=== PATIENT | female | born 1980 | race Caucasian/White ===

== ENCOUNTER → 2019-07-03 16:13 | Outpatient (BNVA) | payer BC, SELFPAY | PROVIDERS: Family Provider Family Medicine; PCP Family Medicine; Visit Provider Family Medicine | DX: E78.5 Hyperlipidemia, unspecified (principal); J01.90 Acute sinusitis, unspecified; R23.2 Flushing | CPT/HCPCS: 80053; 84443 ==

== ENCOUNTER → 2019-11-19 11:07 | Outpatient (BNVA) | payer BC, SELFPAY | PROVIDERS: Family Provider Family Medicine; PCP Family Medicine; Visit Provider Nurse Practitioner Family | DX: R50.9 Fever, unspecified (principal); J01.40 Acute pansinusitis, unspecified; Z20.828 Contact with and (suspected) exposure to other viral communicable diseases; Z11.59 Encounter for screening for other viral diseases; Z68.27 Body mass index [BMI] 27.0-27.9, adult; F17.210 Nicotine dependence, cigarettes, uncomplicated | CPT/HCPCS: 87071; 87400; 87880 ==

== ENCOUNTER 2019-12-03 13:13 | Emergency (ER) | payer BC, SELFPAY ==
[2019-12-03 13:21] VITALS: BP 126/88; PULSE 100; RESP 16; TEMP 36.8; O2SAT 98; BMI 26.6
--- NOTE | 2019-12-03 15:22 | PC.NURSE ---
Rounded on pt, pt updated on wait for room. Pt requesting Tylenol for pain. Physician notified.
--- NOTE | 2019-12-03 15:41 | W.ED.GIBLEED ---
Documented by User: Tom Jin DO 12/04/19 23:07 HPI - GI Bleed General: Chief complaint: GI Bleed Stated complaint: bloody stool Time Seen by Provider: 12/03/19 15:40 History of Present Illness: HPI Narrative: 39 yo female presents emergency room after having a bloody bowel movements morning she had another one after she arrived here. Had discolored the water but not completely turning it solid red. She denies any lightheadedness or dizziness she actually had this several times in the past states she had a pelvic hematoma that she had drained a look at the old records look like she had a perirectal abscess that drained through the rectum into the rectal vault rather than actually draining fistulas into the skin. She has had a couple resections other and is recurred. She is not had any fever sweats or chills she denies any other symptoms no dysuria urgency or frequency no respiratory symptoms. No nausea vomiting or diarrhea. She not been exposed anyone is known to be covered positive recently. Associated symptoms: Denies abdominal pain, chills, fever(s), malaise, nausea, rash or vomiting Review of Systems Const: Denies: fever(s), chills, body aches, change in appetite, fatigue or malaise ENMT: Denies: throat pain, ear or mastoid pain, nasal discharge or nasal congestion Card: Denies: chest pain, edema, dyspnea on exertion or orthopnea Resp: Denies: dyspnea, productive cough or non-productive cough GI: Denies: abdominal pain, nausea, vomiting, hematemesis, coffee ground emesis, diarrhea, constipation, bloating, hematochezia or melena : Denies: flank pain, difficulty voiding, dysuria, urinary frequency or urinary urgency Skin/Breast: Denies: rash or pruritus PFSH ED PFSH: Medical History Chronic bilateral low back pain without sciatica Chronic migraine without aura, intractable, with status migrainosus Hyperlipidemia Nicotine dependence, cigarettes, with unspecified nicotine-induced disorders Perirectal abscess Seizure disorder Surgical History H/O hemorrhoidectomy History of pelvic surgery S/P cholecystectomy S/P tubal ligation Family History Other COPD (chronic obstructive pulmonary disease) Cancer Diabetes Hypertension Lung disease Stroke Social History Smoking and tobacco status: current every day smoker Alcohol intake: never Female Reproductive History: Date of last menstrual period: 12/03/19 Physical Exam Const: COMMON NORMALS: no acute distress GENERAL APPEARANCE: cooperative and comfortable ORIENTATION/CONSCIOUSNESS: Yes awake, Yes oriented to person, Yes oriented to place and Yes oriented to time HENMT: COMMON NORMALS: normocephalic, atraumatic, hearing grossly normal bilaterally, external ears normal, EAC's normal, TM's normal bilaterally, Normal nasal mucous membranes and turbinates present, moist oral mucous membranes and oropharynx normal HEAD & SCALP: normocephalic and atraumatic NOSE: Normal nasal mucous membranes and turbinates present EXTERNAL EAR: Yes external ears normal EXTERNAL AUDITORY CANAL: EAC's normal TYMPANIC MEMBRANE: TM's normal bilaterally Eye: COMMON NORMALS: Equal, round and reactive pupils present, EOMs intact bilaterally, conjunctivae normal and no scleral icterus CONJUNCTIVA: Yes conjunctivae normal PUPIL: Yes Equal, round and reactive pupils present Neck/C-Spine: COMMON NORMALS: full ROM, no lymphadenopathy, supple and no JVD Lymph: LYMPHATIC: no lymphadenopathy noted and no lymphedema noted Resp: COMMON NORMALS: normal respiratory effort, No retractions, No use of accessory muscles and clear to auscultation bilaterally AUSCULTATION: clear to auscultation bilaterally Cardio: COMMON NORMALS: no JVD, regular rate, regular rhythm and No murmurs present (Cardio) RATE: regular rate RHYTHM: regular rhythm GI: COMMON NORMALS: Soft to palpation and No hepatosplenomegaly present AUSCULTATION: Yes normoactive bowel sounds PALPATION: Yes Soft to palpation, No Tenderness to palpation present (GI), No Guarding due to palpation present (GI) and Yes No hepatosplenomegaly present Extremity: COMMON NORMALS: normal to inspection, capillary refill normal, no clubbing, cyanosis or edema, no calf tenderness and no pedal edema Neuro: SENSORIUM/ORIENTATION: Yes oriented to person, Yes oriented to place and Yes oriented to time Skin: COMMON NORMALS: no rashes or lesions noted GENERAL SKIN EXAM: no rashes or lesions noted Course Vital Signs: Vital signs: Vital Signs Temperature 98.2 F 12/03/19 13:21 Pulse Rate 76 12/03/19 18:47 Respiratory Rate 16 12/03/19 18:47 Blood Pressure 134/91 12/03/19 18:47 Pulse Oximetry 99 12/03/19 18:47 MDM - GI Bleed MDM Narrative: Medical decision making narrative: CT pelvis pending care turned over to Dr. High at change of shift see his note for final diagnosis and disposition Lab Data: Labs: Lab Results 12/03/19 12/03/19 12/03/19 Range/Units 15:43 15:43 15:43 WBC 8.3 (4.0-10.0) 10^3/ uL RBC 4.91 (4.1-5.3) 10^6/u L Hgb 14.5 (11.5-15.3) g/dL Hct 45.0 (37.0-47.0) % MCV 91.6 (81-99) fL MCH 29.5 (28.0-34.0) pg MCHC 32.2 (30.0-36.0) g/dL RDW 13.7 (12.1-15.1) % Plt Count 263 (130-400) 10^3/c mm MPV 10.8 H (7.4-10.4) fL Neut % (Auto) 54.8 % Lymph % (Auto) 35.6 % [place] % (Auto) 7.8 % Eos % (Auto) 1.0 % Baso % (Auto) 0.7 % Neut # (Auto) 4.52 (1.8-7.7) 10^3/u L Lymph # (Auto) 2.9 (0.8-4.8) 10^3/u L [place] # (Auto) 0.6 (0.2-0.9) 10^3/u L Eos # (Auto) 0.1 (0.0-0.8) 10^3/u L Baso # (Auto) 0.1 (0.0-0.1) 10^3/u L Nucleated RBC % (a uto) 0 % Nucleated RBCs # 0.0 /100WBC PT 12.40 (10.5-13.3) SECO NDS INR 0.90 (0.8-1.2) APTT 25.5 (23.9-36.7) SECO NDS Sodium 139 (136-145) mmol/L Potassium 4.0 (3.5-5.1) mmol/L Chloride 107 (98-107) mmol/L Carbon Dioxide 23 (22-29) mmol/L Anion Gap 13.0 (5-19) BUN 8 (6-20) mg/dL Creatinine 0.7 (0.5-0.9) mg/dL GFR Calculation 93.6 (90-130) mL/min Glucose 90 (65-115) mg/dL Calculated Osmolal ity 283 L (285-295) mOsm/k g Calcium 9.6 (8.5-10.5) mg/dL Total Bilirubin 0.3 (0.15-1.2) mg/dL AST 14 (0-32) U/L ALT 8 (0-33) U/L Alkaline Phosphata se 58 (35-105) IU/L Total Protein 7.2 (6.6-8.7) g/dL Albumin 4.6 (3.5-5.2) g/dL Globulin 2.6 (1.3-4.6) g/dL Lipase 32 (13-60) U/L HCG, Qual (Negative) 12/03/19 Range/Units 15:43 WBC (4.0-10.0) 10^3/ uL RBC (4.1-5.3) 10^6/u L Hgb (11.5-15.3) g/dL Hct (37.0-47.0) % MCV (81-99) fL MCH (28.0-34.0) pg MCHC (30.0-36.0) g/dL RDW (12.1-15.1) % Plt Count (130-400) 10^3/c mm MPV (7.4-10.4) fL Neut % (Auto) % Lymph % (Auto) % [place] % (Auto) % Eos % (Auto) % Baso % (Auto) % Neut # (Auto) (1.8-7.7) 10^3/u L Lymph # (Auto) (0.8-4.8) 10^3/u L [place] # (Auto) (0.2-0.9) 10^3/u L Eos # (Auto) (0.0-0.8) 10^3/u L Baso # (Auto) (0.0-0.1) 10^3/u L Nucleated RBC % (a uto) % Nucleated RBCs # /100WBC PT (10.5-13.3) SECO NDS INR (0.8-1.2) APTT (23.9-36.7) SECO NDS Sodium (136-145) mmol/L Potassium (3.5-5.1) mmol/L Chloride (98-107) mmol/L Carbon Dioxide (22-29) mmol/L Anion Gap (5-19) BUN (6-20) mg/dL Creatinine (0.5-0.9) mg/dL GFR Calculation (90-130) mL/min Glucose (65-115) mg/dL Calculated Osmolal ity (285-295) mOsm/k g Calcium (8.5-10.5) mg/dL Total Bilirubin (0.15-1.2) mg/dL AST (0-32) U/L ALT (0-33) U/L Alkaline Phosphata se (35-105) IU/L Total Protein (6.6-8.7) g/dL Albumin (3.5-5.2) g/dL Globulin (1.3-4.6) g/dL Lipase (13-60) U/L HCG, Qual Negative (Negative) Discharge Plan Discharge Patient Disposition: Home, Self-Care Clinical Impression: Proctitis Condition: Stable Prescriptions: New Flagyl 500 mg tablet 500 mg PO TID 10 Days Qty: 30 RF: 0 Cipro 500 mg tablet 500 mg PO BID Qty: 20 RF: 0 promethazine 25 mg tablet 25 mg PO Q4H PRN (Reason: nausea and vomiting) Qty: 20 RF: 0 No Action albuterol sulfate [ProAir HFA] 90 mcg/actuation HFA aerosol inhaler 2 inh INHALATION Q4H PRN (Reason: shortness of breath or wheezing) Qty: 6.7 RF: 0 atorvastatin 10 mg tablet 10 mg PO DAILY Qty: 30 RF: 0 Discharge Orders: Discharge Order (Routine); Ordered 12/03/19 Ordered By: rTinh Price Referrals: Anabela Dorantes DO [Primary Care Provider] - 1-3 days Discharge Diet: Advance as tolerated and Clear Liquid Discharge Activity: Increase activity as tolerated Patient Instructions: Proctitis (ED) Activity Restrictions/Additional Instructions: Please return to the ER immediately for any of the signs or symptoms listed on your discharge instruction sheets, worsening/changing of your symptoms, you are not getting better as quickly as expected, or for ANY other cause or concerns. Take your antibiotics as I have prescribed. Use the nausea medicine as needed. Follow a clear liquid diet and advance it back to normal as your pain goes away. Return to the ER for fever, increased pain, increased rectal bleeding, or for any other cause for concern. Stand Alone Forms: Work/School Release Discharge Date/Time: 12/03/19 18:51 Sign Out Sign Out Data: Patient Sign Out occurred on 12/03/19 at 18:11. Patient's care was discussed, and care was transferred from to Trinh Price. Coding Level of Care Code ED Healthcare Social Worker for Chg Fwd Documented by User: Trinh Price 12/03/19 18:42 HPI - GI Bleed General: Chief complaint: GI Bleed Stated complaint: bloody stool Time Seen by Provider: 12/03/19 15:40 PFSH ED PFSH: Medical History Chronic bilateral low back pain without sciatica Chronic migraine without aura, intractable, with status migrainosus Hyperlipidemia Nicotine dependence, cigarettes, with unspecified nicotine-induced disorders Perirectal abscess Seizure disorder Surgical History H/O hemorrhoidectomy History of pelvic surgery S/P cholecystectomy S/P tubal ligation Family History Other COPD (chronic obstructive pulmonary disease) Cancer Diabetes Hypertension Lung disease Stroke Social History Smoking and tobacco status: current every day smoker Alcohol intake: never Course Vital Signs: Vital signs: Vital Signs Temperature 98.2 F 12/03/19 13:21 Pulse Rate 76 12/03/19 18:47 Respiratory Rate 16 12/03/19 18:47 Blood Pressure 134/91 12/03/19 18:47 Pulse Oximetry 99 12/03/19 18:47 MDM - GI Bleed MDM Narrative: Medical decision making narrative: 183 -patient CARE turned over to me at change of shift from Dr. Jin. Please see his portion of this note for that history, physical exam and medical decision-making notes. On my exam the patient's abdomen is nontender and there is no sign of peritonitis. She is not had any further rectal bleeding since arrival here. CT scan shows proctitis but no sign of perirectal abscess. Patient is relieved to hear this and would like to go home. I will place her on Cipro and Flagyl and she agrees to follow-up with her doctor for recheck. I did discuss with her at length the signs and symptoms for which to return here to the ER and she is well versed in the signs and symptoms of perirectal abscess and agrees to do so if necessary. Lab Data: Attestation: I reviewed the patient's lab results. Labs: Lab Results 12/03/19 12/03/19 12/03/19 Range/Units 15:43 15:43 15:43 WBC 8.3 (4.0-10.0) 10^3/ uL RBC 4.91 (4.1-5.3) 10^6/u L Hgb 14.5 (11.5-15.3) g/dL Hct 45.0 (37.0-47.0) % MCV 91.6 (81-99) fL MCH 29.5 (28.0-34.0) pg MCHC 32.2 (30.0-36.0) g/dL RDW 13.7 (12.1-15.1) % Plt Count 263 (130-400) 10^3/c mm MPV 10.8 H (7.4-10.4) fL Neut % (Auto) 54.8 % Lymph % (Auto) 35.6 % [place] % (Auto) 7.8 % Eos % (Auto) 1.0 % Baso % (Auto) 0.7 % Neut # (Auto) 4.52 (1.8-7.7) 10^3/u L Lymph # (Auto) 2.9 (0.8-4.8) 10^3/u L [place] # (Auto) 0.6 (0.2-0.9) 10^3/u L Eos # (Auto) 0.1 (0.0-0.8) 10^3/u L Baso # (Auto) 0.1 (0.0-0.1) 10^3/u L Nucleated RBC % (a uto) 0 % Nucleated RBCs # 0.0 /100WBC PT 12.40 (10.5-13.3) SECO NDS INR 0.90 (0.8-1.2) APTT 25.5 (23.9-36.7) SECO NDS Sodium 139 (136-145) mmol/L Potassium 4.0 (3.5-5.1) mmol/L Chloride 107 (98-107) mmol/L Carbon Dioxide 23 (22-29) mmol/L Anion Gap 13.0 (5-19) BUN 8 (6-20) mg/dL Creatinine 0.7 (0.5-0.9) mg/dL GFR Calculation 93.6 (90-130) mL/min Glucose 90 (65-115) mg/dL Calculated Osmolal ity 283 L (285-295) mOsm/k g Calcium 9.6 (8.5-10.5) mg/dL Total Bilirubin 0.3 (0.15-1.2) mg/dL AST 14 (0-32) U/L ALT 8 (0-33) U/L Alkaline Phosphata se 58 (35-105) IU/L Total Protein 7.2 (6.6-8.7) g/dL Albumin 4.6 (3.5-5.2) g/dL Globulin 2.6 (1.3-4.6) g/dL Lipase 32 (13-60) U/L HCG, Qual (Negative) 12/03/19 Range/Units 15:43 WBC (4.0-10.0) 10^3/ uL RBC (4.1-5.3) 10^6/u L Hgb (11.5-15.3) g/dL Hct (37.0-47.0) % MCV (81-99) fL MCH (28.0-34.0) pg MCHC (30.0-36.0) g/dL RDW (12.1-15.1) % Plt Count (130-400) 10^3/c mm MPV (7.4-10.4) fL Neut % (Auto) % Lymph % (Auto) % [place] % (Auto) % Eos % (Auto) % Baso % (Auto) % Neut # (Auto) (1.8-7.7) 10^3/u L Lymph # (Auto) (0.8-4.8) 10^3/u L [place] # (Auto) (0.2-0.9) 10^3/u L Eos # (Auto) (0.0-0.8) 10^3/u L Baso # (Auto) (0.0-0.1) 10^3/u L Nucleated RBC % (a uto) % Nucleated RBCs # /100WBC PT (10.5-13.3) SECO NDS INR (0.8-1.2) APTT (23.9-36.7) SECO NDS Sodium (136-145) mmol/L Potassium (3.5-5.1) mmol/L Chloride (98-107) mmol/L Carbon Dioxide (22-29) mmol/L Anion Gap (5-19) BUN (6-20) mg/dL Creatinine (0.5-0.9) mg/dL GFR Calculation (90-130) mL/min Glucose (65-115) mg/dL Calculated Osmolal ity (285-295) mOsm/k g Calcium (8.5-10.5) mg/dL Total Bilirubin (0.15-1.2) mg/dL AST (0-32) U/L ALT (0-33) U/L Alkaline Phosphata se (35-105) IU/L Total Protein (6.6-8.7) g/dL Albumin (3.5-5.2) g/dL Globulin (1.3-4.6) g/dL Lipase (13-60) U/L HCG, Qual Negative (Negative) Imaging Data^: CT Abd/Pel: Radiologist's impression: [address] [place] [address] CT Scan Report Signed Patient: Ranjeet Whatley Unit #: [id number] : 1980 Age/Sex: 39 / F ADM Date: 12/03/19 Loc: ER Room/Bed: Attending Dr: Ordering Provider/Ordering MD: Tom Jin DO Date of Service: 12/03/19 Procedure(s): CT pelvis w con* [id number] Accession Number(s): [id number] Report Number: [id number] PROCEDURE INFORMATION: Exam: CT Pelvis With Contrast Exam date and time: 12/03/2019 5:32 PM Age: 39 years old Clinical indication: Other: Rectal bleeding; Other: Rectal pain; Prior surgery; Surgery date: 6+ months; Surgery type: Rectal abscesses; Additional info: Rectal bleeding, HX of rectal abscess TECHNIQUE: Imaging protocol: Computed tomography images of the pelvis with intravenous contrast. Radiation optimization: All CT scans at this facility use at least one of these dose optimization techniques: automated exposure control; mA and/or kV adjustment per patient size (includes targeted exams where dose is matched to clinical indication); or iterative reconstruction. Contrast material: OMNI 300; Contrast volume: 95 ml; Contrast route: INTRAVENOUS (IV); COMPARISON: CT Abdomen/Pelvis Renal [id number] 05/02/2019 7:58 AM RADIATION DOSE METRICS: Total DLP (mGy-cm): 309.59 FINDINGS: Stomach and bowel: Borderline bowel wall thickening in the rectum consistent with borderline proctitis. Appendix: Normal appendix. Intraperitoneal space: Unremarkable. No free air. No significant fluid collection. Vasculature: One or more calcified pelvic phleboliths. Lymph nodes: Unremarkable. No enlarged lymph nodes. Bladder: Normal. No mass. Reproductive: New tampon in place which is predominantly air density. Bones/joints: Unremarkable. No acute fracture. No dislocation. Soft tissues: Unremarkable. Other findings: No obvious perirectal abscess at this time. CT/CT pelvis w con* [id number] IMPRESSION: 1. Borderline bowel wall thickening in the rectum consistent with borderline proctitis. 2. No obvious perirectal abscess at this time. Radiation Dose CTDIVOL = (mGy): DLP = 309.59 (mGy-cm) Dictated By: Rodri Champagne MD Signed By: Rodri Champagne MD Signed Date/Time: 12/03/191758 DD/ 57 Discharge Plan Discharge Patient Disposition: Home, Self-Care Clinical Impression: Proctitis Condition: Stable Prescriptions: New Flagyl 500 mg tablet 500 mg PO TID 10 Days Qty: 30 RF: 0 Cipro 500 mg tablet 500 mg PO BID Qty: 20 RF: 0 promethazine 25 mg tablet 25 mg PO Q4H PRN (Reason: nausea and vomiting) Qty: 20 RF: 0 No Action albuterol sulfate [ProAir HFA] 90 mcg/actuation HFA aerosol inhaler 2 inh INHALATION Q4H PRN (Reason: shortness of breath or wheezing) Qty: 6.7 RF: 0 atorvastatin 10 mg tablet 10 mg PO DAILY Qty: 30 RF: 0 Discharge Orders: Discharge Order (Routine); Ordered 12/03/19 Ordered By: Trinh Price Referrals: Anabela Dorantes DO [Primary Care Provider] - 1-3 days Discharge Diet: Advance as tolerated and Clear Liquid Discharge Activity: Increase activity as tolerated Patient Instructions: Proctitis (ED) Activity Restrictions/Additional Instructions: Please return to the ER immediately for any of the signs or symptoms listed on your discharge instruction sheets, worsening/changing of your symptoms, you are not getting better as quickly as expected, or for ANY other cause or concerns. Take your antibiotics as I have prescribed. Use the nausea medicine as needed. Follow a clear liquid diet and advance it back to normal as your pain goes away. Return to the ER for fever, increased pain, increased rectal bleeding, or for any other cause for concern. Stand Alone Forms: Work/School Release Discharge Date/Time: 12/03/19 18:51 Sign Out Sign Out Data: Patient Sign Out occurred on 12/03/19 at 18:11. Patient's care was discussed, and care was transferred from to Trinh Price. Coding Level of Care Code ED Healthcare Social Worker for Tish Smallwood
[2019-12-03 15:51] VITALS: BP 119/82; BP 120/78; BP 120/82; PULSE 74; PULSE 83; PULSE 92
[2019-12-03 15:53] LABS: Basophils # 0.1 10^3/uL (0.0-0.1); Basophils % 0.7 %; Eosinophils # 0.1 10^3/uL (0.0-0.8); Hemoglobin 14.5 g/dL (11.5-15.3); Lymphocytes # 2.9 10^3/uL (0.8-4.8); Lymphocytes % 35.6 %; Mean Corpuscular HGB Conc 32.2 g/dL (30.0-36.0); Mean Corpuscular Hemoglobin 29.5 pg (28.0-34.0); Mean Corpuscular Volume 91.6 fL (81-99); Mean Platelet Volume 10.8 fL (7.4-10.4); Monocytes # 0.6 10^3/uL (0.2-0.9); Monocytes % 7.8 %; Neutrophils # 4.52 10^3/uL (1.8-7.7); Neutrophils % 54.8 %; Nucleated Red Blood Cells % 0 %; Platelet Count 263 10^3/cmm (130-400); Red Blood Count 4.91 10^6/uL (4.1-5.3); Red Cell Distribution Width 13.7 % (12.1-15.1); White Blood Count 8.3 10^3/uL (4.0-10.0)
--- NOTE | 2019-12-03 16:11 | CTR_ITS ---
PROCEDURE INFORMATION: Exam: CT Pelvis With Contrast Exam date and time: 12/03/2019 5:32 PM Age: 39 years old Clinical indication: Other: Rectal bleeding; Other: Rectal pain; Prior surgery; Surgery date: 6+ months; Surgery type: Rectal abscesses; Additional info: Rectal bleeding, HX of rectal abscess TECHNIQUE: Imaging protocol: Computed tomography images of the pelvis with intravenous contrast. Radiation optimization: All CT scans at this facility use at least one of these dose optimization techniques: automated exposure control; mA and/or kV adjustment per patient size (includes targeted exams where dose is matched to clinical indication); or iterative reconstruction. Contrast material: OMNI 300; Contrast volume: 95 ml; Contrast route: INTRAVENOUS (IV); COMPARISON: CT Abdomen/Pelvis Renal [id number] 05/02/2019 7:58 AM RADIATION DOSE METRICS: Total DLP (mGy-cm): 309.59 FINDINGS: Stomach and bowel: Borderline bowel wall thickening in the rectum consistent with borderline proctitis. Appendix: Normal appendix. Intraperitoneal space: Unremarkable. No free air. No significant fluid collection. Vasculature: One or more calcified pelvic phleboliths. Lymph nodes: Unremarkable. No enlarged lymph nodes. Bladder: Normal. No mass. Reproductive: New tampon in place which is predominantly air density. Bones/joints: Unremarkable. No acute fracture. No dislocation. Soft tissues: Unremarkable. Other findings: No obvious perirectal abscess at this time. CT/CT pelvis w con* [id number] IMPRESSION: 1. Borderline bowel wall thickening in the rectum consistent with borderline proctitis. 2. No obvious perirectal abscess at this time. Radiation Dose CTDIVOL = (mGy): DLP = 309.59 (mGy-cm)
[2019-12-03 16:17] LABS: Partial Thromboplastin Time 25.5 SECONDS (23.9-36.7)
[2019-12-03 16:19] LABS: Alanine Aminotransferase 8 U/L (0-33); Albumin Level 4.6 g/dL (3.5-5.2); Alkaline Phosphatase 58 IU/L (35-105); Aspartate Amino Transferase 14 U/L (0-32); Blood Urea Nitrogen 8 mg/dL (6-20); Calcium 9.6 mg/dL (8.5-10.5); Carbon Dioxide 23 mmol/L (22-29); Chloride 107 mmol/L (98-107); Globulin 2.6 g/dL (1.3-4.6); Glomerular Filtration Rate 93.6 mL/min (90-130); Glucose 90 mg/dL (65-115); Lipase 32 U/L (13-60); Osmolality Calculated 283 mOsm/kg (285-295); Sodium 139 mmol/L (136-145); Total Bilirubin 0.3 mg/dL (0.15-1.2); Total Protein 7.2 g/dL (6.6-8.7)
[2019-12-03] MEDS: acetaminophen 500 mg Tablet 1000 MG PO (16:26)
[2019-12-03 16:44] VITALS: BP 117/69; PULSE 64; RESP 16; O2SAT 99
--- NOTE | 2019-12-03 16:44 | PC.NURSE ---
Patient reports that she got up and used the restroom. Patient states she is now losing large clots now.
[2019-12-03 17:34] VITALS: BP 93/59; PULSE 77; RESP 16; O2SAT 100
[2019-12-03] MEDS: iohexol 300 mg/mL 100 mL Btl IV (17:48)
[2019-12-03 18:32] LABS: HCG, Serum Qual Negative (Negative)
[2019-12-03] MEDS: ciprofloxacin 500 mg Tablet PO (18:46)
[2019-12-03] MEDS: metroNIDAZOLE 500 MG Tablet PO (18:46)
[2019-12-03 18:47] VITALS: BP 134/91; PULSE 76; RESP 16; O2SAT 99
== END 2019-12-03 18:51 | disposition home or self-care (01) ==
PROVIDERS: Emergency Medicine; Family Medicine; Emergency Provider Emergency Medicine; PCP Family Medicine
DX: K62.89 Other specified diseases of anus and rectum (principal); E78.5 Hyperlipidemia, unspecified; F17.210 Nicotine dependence, cigarettes, uncomplicated
CPT/HCPCS: 12345; 36415; 72193; 80053; 83690; 84703; 85025; 85610; 85730; 99283; 99284; Q9967

== ENCOUNTER → 2020-01-16 11:40 | Outpatient (BNVA) | payer BC, SELFPAY | PROVIDERS: PCP Family Medicine; Visit Provider Nurse Practitioner Family | DX: R09.81 Nasal congestion (principal); R50.9 Fever, unspecified; Z20.828 Contact with and (suspected) exposure to other viral communicable diseases | CPT/HCPCS: 87635 ==

== ENCOUNTER → 2020-03-04 14:26 | Outpatient (BNVA) | payer BC, SELFPAY | PROVIDERS: PCP Family Medicine; Visit Provider Nurse Practitioner Family | DX: J06.9 Acute upper respiratory infection, unspecified (principal); R50.9 Fever, unspecified | CPT/HCPCS: 87635 ==

== ENCOUNTER → 2020-04-06 14:47 | Outpatient (BNVA) | payer BC, SELFPAY | PROVIDERS: PCP Family Medicine; Visit Provider Nurse Practitioner Family | DX: Z20.828 Contact with and (suspected) exposure to other viral communicable diseases (principal); J06.9 Acute upper respiratory infection, unspecified | CPT/HCPCS: 87635 ==

== ENCOUNTER → 2020-05-25 14:19 | Outpatient (BNVA) | payer BC, SELFPAY | PROVIDERS: PCP Family Medicine; Visit Provider Nurse Practitioner Family | DX: Z20.828 Contact with and (suspected) exposure to other viral communicable diseases (principal); J06.9 Acute upper respiratory infection, unspecified | CPT/HCPCS: 87635 ==

== ENCOUNTER 2020-06-03 13:57 | Outpatient (CLI) | payer BC, SELFPAY ==
--- NOTE | 2020-06-03 14:04 | USCV_ITS ---
Ranjeet Whatley Age: 39 Gender: F : 1980 Exam Date: 06/03/2020 14:05 Ordering Phys: Anabela Dorantes DO Technologist: [place] [facility] [place]: Bilateral leg pain RIGHT LEFT Brachial 109.00 mmHg Brachial 114.00 mmHg Pressure (mmHg) Waveform Pressure (mmHg) Waveform 150.00 DRY KILN WORKER 146.00 131.00 DPA 138.00 1.32 Ankle/Brachial Index 1.28 112.00 Pre-Exercise Toe Pressure 136.00 0.98 Pre-Exercise Toe/Brachial Index 1.19 FINDINGS Normal resting ABIs bilaterally Normal resting TBI's bilaterally Normal segmental pressures CONCLUSIONS No evidence of any significant arterial obstruction, based on the above findings. Dr Trev Olivares MD [facility] (Electronically Signed) Final Date: 03 June 2020 19:45 S
== END 2020-06-03 13:58 | disposition home or self-care (01) ==
LOC: RAD 14:00
PROVIDERS: PCP Family Medicine; Visit Provider Family Medicine
DX: M79.604 Pain in right leg (principal); M79.605 Pain in left leg
CPT/HCPCS: 80053; 84443; 85025; 93922

== ENCOUNTER 2020-06-30 08:25 | Outpatient (CLI) | payer BC, SELFPAY ==
[2020-06-30 08:54] VITALS: BMI 26.6
--- NOTE | 2020-06-30 09:12 | ECG_ITS ---
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 Interpretive Statements NAME OF STUDY: EXERCISE SESTAMIBI STRESS TEST INDICATION: [DYSPNEA ON EXERTION] EXERCISE DATA: The patient was exercised by Scott protocol. Baseline heart rate was 83 beats per minute. Baseline blood pressure was 122/80 millimeters of mercury. Target heart rate was 154 beats per minute. Maximum heart rate achieved was 162, which was 89% of maximum predicted heart rate. Maximum blood pressure was 138/73 millimeters of mercury. Total exercise time was 6 minutes 48 seconds. Maximum METs achieved was 7, maximum VO2 was 24.5. The reason for ending the test was completion of protocol. The patient complained of shortness of breath during the stress test, which then resolved at the end of the test. ELECTROCARDIOGRAM: BASELINE: Showed sinus rhythm, normal axis, no significant ST-T changes at the baseline noted. [] EXERCISE: At the peak exercise level, No significant ST-T changes suggestive of ischemia noted. RECOVERY: During the recovery period, heart rate dropped appropriately. No significant ST-T changes in the recovery suggestive of ischemia noted. [] CONCLUSION: 1. Exercise capacity fair. 2. Heart rate response was appropriate. 3. Blood pressure response was appropriate. 4. Symptoms not suggestive of ischemia. 5. Electrocardiogram portion of the stress test was not suggestive of ischemia. 6. Nuclear scan will be documented separately. Electronically Signed On 07-04-2020 14:11:44 PROVISIONING SPECIALIST by Bradley Hernandez M.D. [id number]
--- NOTE | 2020-06-30 09:13 | NMCV_ITS ---
NM lam perf SPECT r/s* [id number] Ranjeet Whatley Age: 39 Gender: F : 1980 Exam Date: 06/30/2020 09:54 Ordering Phys: Anabela Dorantes DO Technologist: SHANNON Celeste Exam Location: [facility] Indications: Dyspnea on exertion STRESS TEST Please see separate stress test report in [facility] for full findings IMAGE PROTOCOL Rest/Stress 1 Exercise Day Radiopharmaceutical Dose (mCi) Administration Site Administered by Rest: Tc-99m 10.9 IV SHANNON Armenta Sestamibi Stress:Tc-99m 32.9 IV SHANNON Celeste Sestamitodd Rest: 30-Jun-2020 60 Discovery 630 Stress: 30-Jun-2020 30 Discovery 630 Radiopharmaceutical was injected at 85 % maximum heart rate. Images obtained in supine and prone position. SPECT RESULTS Technical Quality: Excellent Raw Data Analysis: Normal Image Corrections: No attenuation or motion correction applied Summed Stress Score: 1 Summed Rest Score: 2 Summed Difference Score: 0 PERFUSION FINDINGS SPECT images demonstrate homogeneous tracer distribution throughout the myocardium. FUNCTIONAL RESULTS (calculated via Gated SPECT) Stress Image LV EF (%): 64 Stress EDV (mL):70 TID: 0.83 Stress ESV (mL):25 FUNCTIONAL FINDINGS: LV systolic function is normal with EF of 64%. IMPRESSIONS 1. Normal myocardial perfusion imaging with no evidence of ischemia. 2. LV systolic function is normal with EF of 64%. Bradley Hernandez MD (Electronically Signed) Final Date: 30 June 2020 13:56 S
[2020-06-30 11:08] VITALS: BP 113/72; PULSE 82
== END 2020-06-30 08:26 | disposition home or self-care (01) ==
LOC: CDL 08:26
PROVIDERS: PCP Family Medicine; Visit Provider Family Medicine
DX: R06.00 Dyspnea, unspecified (principal)
CPT/HCPCS: 78452; 93017; A9500

== ENCOUNTER 2020-10-23 19:26 | Emergency (ER) | payer BC, SELFPAY ==
[2020-10-23 19:34] VITALS: BP 111/72; PULSE 122; RESP 16; TEMP 36.8; O2SAT 99; BMI 25.7
--- NOTE | 2020-10-23 19:55 | CTR_ITS ---
PROCEDURE INFORMATION: Exam: CT Abdomen And Pelvis With Contrast Exam date and time: 10/23/2020 8:25 PM Age: 40 years old Clinical indication: Other: Rectal; Prior surgery; Surgery date: 6+ months; Surgery type: Abcess x 3, gb, tubal; Patient HX: C/O pain/pressure x 4 days w HX of abcess; Additional info: Rectal pain, HX proctitis and perirectal abscess TECHNIQUE: Imaging protocol: Computed tomography of the abdomen and pelvis with contrast. Total images: 221 Radiation optimization: All CT scans at this facility use at least one of these dose optimization techniques: automated exposure control; mA and/or kV adjustment per patient size (includes targeted exams where dose is matched to clinical indication); or iterative reconstruction. Contrast material: OMNI 300; Contrast volume: 95 ml; Contrast route: INTRAVENOUS (IV); COMPARISON: 1. CT pelvis w con* [id number] 12/03/2019 5:[address] Abdomen/Pelvis Renal [id number] 05/02/2019 7:58:07 AM RADIATION DOSE METRICS: Total DLP (mGy-cm): 1113.71 FINDINGS: Lungs: Limited assessment of the lung bases fails to reveal evidence for active cardiopulmonary process. Liver: No visible hepatic mass or cystic structure. Gallbladder and bile ducts: Status post cholecystectomy. Pancreas: Pancreas is unremarkable. No visible pancreatic ductal ectasia. Spleen: Spleen unremarkable. Adrenal glands: Adrenal glands unremarkable. Kidneys and ureters: No hydronephrosis or perinephric fluid. Very small simple cortical cysts right kidney. No follow-up recommended. No visible nephrolithiasis. No visible ureterolithiasis. Stomach and bowel: Examination reveals considerable mucosal inflammation of the rectum with surrounding perirectal fat inflammatory response consistent with acute proctitis. Less significant mucosal thickening and inflammation of the rectosigmoid and sigmoid colon raising concern for regional colitis. Less significant mucosal prominence of the descending colon. No associated descending colonic pericolonic fat inflammatory response. Consideration should be given to ulcerative colitis. Nonobstructive bowel pattern. No visible adynamic or reactive ileus. Appendix: The appendix is visualized and appears noninflamed. Intraperitoneal space: No visible pneumoperitoneum or intraperitoneal ascites. Vasculature: Portal vein patent. The abdominal aorta is nonaneurysmal. Lymph nodes: Few marginally prominent retroperitoneal periaortic/pericaval lymph nodes most likely reactive. Urinary bladder: Urinary bladder unremarkable. Reproductive: Unremarkable as visualized. Bones/joints: No visible active or acute osseous pathology. Soft tissues: No visible perirectal abscess/perineal abscess. CT/CT abdomen pelvis w con* [id number] IMPRESSION: 1. Examination reveals considerable mucosal inflammation of the rectum with surrounding perirectal fat inflammatory response consistent with acute proctitis. 2. Less significant mucosal thickening and inflammation of the rectosigmoid and sigmoid colon raising concern for regional colitis. 3. Consideration should be given to ulcerative colitis. COMMENTS: Consistent with the [employer]'s Incidental Findings Committee white paper (J Am Renée Radiol 2018): Any incidental renal lesion less than 1 cm or classified as too small to characterize, or any incidental cystic renal lesion characterized as simple-appearing, is likely benign. No follow-up imaging is recommended for these lesions per consensus recommendations based on imaging criteria. Radiation Dose CTDIVOL = (mGy): DLP = 1113.71 (mGy-cm)
--- NOTE | 2020-10-23 20:00 | ED_ITS ---
HPI - General Adult General: Chief complaint: General Medical Stated complaint: Pressure in Rear Area Time Seen by Provider: 10/23/20 19:41 History of Present Illness: HPI narrative: 40-year-old patient with a history of proctitis and perirectal abscess. She has seen gastroenterology at [facility] in [facility], and is scheduled for a colonoscopy on Sunday. However, over the past couple of days she is begun to feel pressure again in her rectum. The pressure worsened today. She denies any blood in her stool, although she states that her stool has been like jelly no fever no vomiting. No change in her urine. She is concerned because of her previous history. Onset (ago): day(s) Location: pelvis (Perirectal/rectal) Radiation: non-radiation Severity: moderate Quality: aching and other (Pressure) Pain Consistency: constant Relieving factors: none Exacerbating factors: none Associated symptoms: Reports nausea; Deny chest pain, dyspnea, fevers/chills or vomiting Review of Systems Const: Denies: fever(s) Card: Denies: chest pain Resp: Denies: dyspnea GI: Reports: nausea; Denies: vomiting or hematochezia : Denies: flank pain, difficulty voiding, dysuria or hematuria PFS ED PFSH: Medical History (Updated 10/23/20 @ 21:33 by Papito De Jesus DO) Chronic bilateral low back pain without sciatica Chronic migraine without aura, intractable, with status migrainosus Hyperlipidemia Nicotine dependence, cigarettes, with unspecified nicotine-induced disorders Perirectal abscess Proctitis Seizure disorder Surgical History H/O hemorrhoidectomy History of pelvic surgery S/P cholecystectomy S/P tubal ligation Status post colonoscopy (~2018) Family History Mother Anesthesia complication Other COPD (chronic obstructive pulmonary disease) Cancer Diabetes Hypertension Lung disease Stroke Denies family history of Bleeding disorder Social History Smoking and tobacco status: current every day smoker cigarettes Packs smoked per day: 1 Alcohol intake: never Household members: significant other Marital status: Single Current occupational status: employed History of recent travel: No Female Reproductive History: Date of last menstrual period: 12/03/19 Physical Exam Const: COMMON NORMALS: no acute distress, patient oriented x3 and alert Eye: COMMON NORMALS: Equal, round and reactive pupils present and EOMs intact bilaterally PUPIL: Yes Equal, round and reactive pupils present Resp: COMMON NORMALS: normal respiratory effort, No use of accessory muscles and clear to auscultation bilaterally AUSCULTATION: clear to auscultation bilaterally Cardio: COMMON NORMALS: regular rate, regular rhythm and No murmurs present (Cardio) RATE: regular rate RHYTHM: regular rhythm GI: COMMON NORMALS: Normal to inspection, nondistended, normoactive bowel sounds present, Soft to palpation and no masses PALPATION: Yes Soft to palpation and Yes Tenderness to palpation present (GI) (Mild) Details: LLQ and RLQ RECTAL EXAM: no lesion(s) noted, no fissure noted, No Fistula present (GI), no mass(es) noted and tenderness Neuro: COMMON NORMALS: patient oriented x3 SENSORIUM/ORIENTATION: Yes alert Skin: COMMON NORMALS: no rashes or lesions noted GENERAL SKIN EXAM: no rashes or lesions noted Course Vital Signs: Vital signs: Vital Signs Temperature 98.2 F 10/23/20 19:34 Pulse Rate 97 10/23/20 22:18 Respiratory Rate 18 10/23/20 22:18 Blood Pressure 115/73 10/23/20 22:18 Pulse Oximetry 100 10/23/20 22:18 MDM - General Adult MDM Narrative: Medical decision making narrative: White blood cell count 12.6. Sed rate minimally elevated, but CRP is 24. Other labs are benign. CT scan shows proctitis and descending colitis without abscess suggestive of inflammatory bowel disease, especially given recurrence. Patient counseled on her diagnosis and treatment including steroids and antibiotics for inflammatory bowel disease flare following up with her GI physician on Sunday morning by phone for any further instructions, and returning for any worsening symptoms. Lab Data: Labs: Lab Results 10/23/20 10/23/20 10/23/20 Range/Units 20:05 20:05 20:05 WBC 12.6 H (4.0-10.0) 10^3/ uL RBC 4.87 (4.1-5.3) 10^6/u L Hgb 14.6 (11.5-15.3) g/dL Hct 43.9 (37.0-47.0) % MCV 90.1 (81-99) fL MCH 30.0 (28.0-34.0) pg MCHC 33.3 (30.0-36.0) g/dL RDW 13.3 (12.1-15.1) % Plt Count 270 (130-400) 10^3/c mm MPV 10.4 (7.4-10.4) fL Neut % (Auto) 76.2 % Lymph % (Auto) 15.9 % [place] % (Auto) 6.4 % Eos % (Auto) 0.7 % Baso % (Auto) 0.3 % Neut # (Auto) 9.56 H (1.8-7.7) 10^3/u L Lymph # (Auto) 2.0 (0.8-4.8) 10^3/u L [place] # (Auto) 0.8 (0.2-0.9) 10^3/u L Eos # (Auto) 0.1 (0.0-0.8) 10^3/u L Baso # (Auto) 0.0 (0.0-0.1) 10^3/u L Nucleated RBC % (a uto) 0 % Nucleated RBCs # 0.0 /100WBC ESR 17 H (0-15) mm/hr Sodium 140 (136-145) mmol/L Potassium 3.5 (3.5-5.1) mmol/L Chloride 103 (98-107) mmol/L Carbon Dioxide 26 (22-29) mmol/L Anion Gap 14.5 (5-19) BUN 8 (6-20) mg/dL Creatinine 0.7 (0.5-0.9) mg/dL GFR Calculation 93.2 (90-130) mL/min Glucose 117 H (65-115) mg/dL Calculated Osmolal ity 289 (285-295) mOsm/k g Lactate (0.5-2.2) mmol/L Calcium 9.0 (8.5-10.5) mg/dL Total Bilirubin 0.4 (0.15-1.2) mg/dL AST 10 (0-32) U/L ALT 6 (0-33) U/L Alkaline Phosphata se 63 (35-105) IU/L C-Reactive Protein 24.0 H (0.0-4.9) mg/L Total Protein 7.2 (6.6-8.7) g/dL Albumin 4.2 (3.5-5.2) g/dL Globulin 3.0 (1.3-4.6) g/dL Lipase 14 (13-60) U/L HCG, Qual (Negative) Urine Color (Yellow) Urine Appearance (CLEAR) Urine pH (5-7) Ur Specific Gravit y (1.005-1.030) Urine Protein (Negative) Urine Glucose (UA) (Normal) Urine Ketones (Negative) Urine Blood (Negative) Urine Nitrate (Negative) Urine Bilirubin (Negative) Urine Urobilinogen (Negative) mg/dL Ur Leukocyte Emma ase (Negative) 10/23/20 10/23/20 10/23/20 Range/Units 20:05 20:15 20:18 WBC (4.0-10.0) 10^3/ uL RBC (4.1-5.3) 10^6/u L Hgb (11.5-15.3) g/dL Hct (37.0-47.0) % MCV (81-99) fL MCH (28.0-34.0) pg MCHC (30.0-36.0) g/dL RDW (12.1-15.1) % Plt Count (130-400) 10^3/c mm MPV (7.4-10.4) fL Neut % (Auto) % Lymph % (Auto) % [place] % (Auto) % Eos % (Auto) % Baso % (Auto) % Neut # (Auto) (1.8-7.7) 10^3/u L Lymph # (Auto) (0.8-4.8) 10^3/u L [place] # (Auto) (0.2-0.9) 10^3/u L Eos # (Auto) (0.0-0.8) 10^3/u L Baso # (Auto) (0.0-0.1) 10^3/u L Nucleated RBC % (a uto) % Nucleated RBCs # /100WBC ESR (0-15) mm/hr Sodium (136-145) mmol/L Potassium (3.5-5.1) mmol/L Chloride (98-107) mmol/L Carbon Dioxide (22-29) mmol/L Anion Gap (5-19) BUN (6-20) mg/dL Creatinine (0.5-0.9) mg/dL GFR Calculation (90-130) mL/min Glucose (65-115) mg/dL Calculated Osmolal ity (285-295) mOsm/k g Lactate 0.8 (0.5-2.2) mmol/L Calcium (8.5-10.5) mg/dL Total Bilirubin (0.15-1.2) mg/dL AST (0-32) U/L ALT (0-33) U/L Alkaline Phosphata se (35-105) IU/L C-Reactive Protein (0.0-4.9) mg/L Total Protein (6.6-8.7) g/dL Albumin (3.5-5.2) g/dL Globulin (1.3-4.6) g/dL Lipase (13-60) U/L HCG, Qual Negative (Negative) Urine Color Yellow (Yellow) Urine Appearance Clear (CLEAR) Urine pH 7 (5-7) Ur Specific Gravit y 1.005 (1.005-1.030) Urine Protein Neg (Negative) Urine Glucose (UA) Norm (Normal) Urine Ketones Negative (Negative) Urine Blood Neg (Negative) Urine Nitrate Negative (Negative) Urine Bilirubin Neg (Negative) Urine Urobilinogen Norm (Negative) mg/dL Ur Leukocyte Emma ase Negative (Negative) Discharge Plan Discharge Patient Disposition: Home Clinical Impression: Proctitis, Colitis Condition: Stable Prescriptions: New hydrocodone-acetaminophen 5-325 mg tablet 1 tab PO Q8H PRN (Reason: pain) Qty: 12 RF: 0 prednisone 10 mg tablet See Rx Instructions .ROUTE .COMPLEX Qty: 21 RF: 0 Flagyl 500 mg tablet 500 mg PO TID Qty: 21 RF: 0 No Action albuterol sulfate [ProAir HFA] 90 mcg/actuation HFA aerosol inhaler 2 inh INHALATION Q4H PRN (Reason: shortness of breath or wheezing) Qty: 6.7 RF: 0 azithromycin [Zithromax Z-Adán] 250 mg tablet See Rx Instructions PO .COMPLEX Qty: 6 RF: 0 ciprofloxacin-dexamethasone [Ciprodex] 0.3-0.1 % drops,suspension 4 drp otic (ear) BID 7 Days Qty: 7.5 RF: 0 Discharge Orders: Discharge ED (Routine); Ordered 10/23/20 Ordered By: Papito De Jesus Referrals: Anabela Dorantes DO [Primary Care Provider] - Discharge Diet: Advance as tolerated Discharge Activity: Increase activity as tolerated Patient Instructions: Proctitis (ED), Ulcerative Colitis (ED), Opioid Safety Activity Restrictions/Additional Instructions: Return for fever greater than 100, vomiting liquids or medications, worsening pain despite treatment, blood in the stool, any other concerning symptoms. Call your inspector metal fabricating Sunday morning for any further recommendations, and to let them know you were seen here. Coding Level of Care Code ED Knife Finisher for Chg Fwd Exam Detailed
[2020-10-23 20:11] LABS: Basophils % 0.3 %; Eosinophils # 0.1 10^3/uL (0.0-0.8); Eosinophils % 0.7 %; Hematocrit 43.9 % (37.0-47.0); Hemoglobin 14.6 g/dL (11.5-15.3); Lymphocytes % 15.9 %; Mean Corpuscular HGB Conc 33.3 g/dL (30.0-36.0); Mean Corpuscular Volume 90.1 fL (81-99); Mean Platelet Volume 10.4 fL (7.4-10.4); Monocytes # 0.8 10^3/uL (0.2-0.9); Monocytes % 6.4 %; Neutrophils # 9.56 10^3/uL (1.8-7.7); Neutrophils % 76.2 %; Nucleated Red Blood Cells % 0 %; Platelet Count 270 10^3/cmm (130-400); Red Blood Count 4.87 10^6/uL (4.1-5.3); Red Cell Distribution Width 13.3 % (12.1-15.1); White Blood Count 12.6 10^3/uL (4.0-10.0)
[2020-10-23 20:22] LABS: HCG, Serum Qual Negative (Negative)
[2020-10-23 20:25] LABS: Add Urine Microscopic? NO; Charge for UA Resulting for Rev
[2020-10-23 20:29] LABS: Bilirubin Urine Neg (Negative); Blood Urine Neg (Negative); Glucose Urine UA Norm (Normal); Ketones Urine Negative (Negative); Leukocyte Esterase Urine Negative (Negative); Nitrate Urine Negative (Negative); Protein Urine Neg (Negative); Specific Gravity, Urine 1.005 (1.005-1.030); Urine Appearance Clear (CLEAR); Urine Color Yellow (Yellow); Urobilinogen Urine Norm (Negative); pH Urine 7 (5-7)
[2020-10-23 20:31] LABS: Alanine Aminotransferase 6 U/L (0-33); Albumin Level 4.2 g/dL (3.5-5.2); Alkaline Phosphatase 63 IU/L (35-105); Anion Gap 14.5 (5-19); Aspartate Amino Transferase 10 U/L (0-32); Blood Urea Nitrogen 8 mg/dL (6-20); Carbon Dioxide 26 mmol/L (22-29); Chloride 103 mmol/L (98-107); Glomerular Filtration Rate 93.2 mL/min (90-130); Glucose 117 mg/dL (65-115); Lipase 14 U/L (13-60); Osmolality Calculated 289 mOsm/kg (285-295); Potassium 3.5 mmol/L (3.5-5.1); Sodium 140 mmol/L (136-145); Total Bilirubin 0.4 mg/dL (0.15-1.2); Total Protein 7.2 g/dL (6.6-8.7)
[2020-10-23] MEDS: iohexol 300 mg/mL 100 mL Btl IV (20:32)
[2020-10-23 20:37] LABS: Lactate (Lactic Acid level) 0.8 mmol/L (0.5-2.2)
[2020-10-23] MEDS: ondansetron 2 mg/ML SDV 2 mL 4 MG IVP (20:48)
[2020-10-23] MEDS: ketorolac 30 mg/mL INJ IVP (20:48)
[2020-10-23 20:50] LABS: Erythrocyte Sedimentation Rate 17 mm/hr (0-15)
[2020-10-23] MEDS: metroNIDAZOLE 500 MG Tablet PO (21:30)
[2020-10-23] MEDS: HYDROmorphone 1 mg/mL INJ 1 mL IVP (21:34)
[2020-10-23 22:18] VITALS: BP 115/73; PULSE 97; RESP 18; O2SAT 100
== END 2020-10-23 22:18 | disposition home or self-care (01) ==
PROVIDERS: Emergency Provider Emergency Medicine; PCP Family Medicine
DX: K62.89 Other specified diseases of anus and rectum (principal); K52.9 Noninfective gastroenteritis and colitis, unspecified; E78.5 Hyperlipidemia, unspecified; F17.210 Nicotine dependence, cigarettes, uncomplicated
CPT/HCPCS: 74177; 80053; 81003; 83605; 83690; 84703; 85025; 85651; 86140; 96374; 96375; 99284; J1170; J1885; J2405; J2930; Q9967

== ENCOUNTER 2022-02-02 08:30 | Emergency (ER) | payer BC, SELFPAY ==
[2022-02-02 08:35] VITALS: BP 141/88; PULSE 82; RESP 18; TEMP 36.4; O2SAT 97
--- NOTE | 2022-02-02 08:44 | US_ITS ---
WS: [id number] TRANSVAGINAL PELVIC ULTRASOUND HISTORY: L side pelvic pain COMPARISON: 08/08/2017 Uterus: 8.4 cm x 5.8 cm x 4.6 cm. Normal size anteverted uterus. No fibroid or mass. Endometrium: 0.7 cm. Moderate amount of fluid along the endometrial canal. Simple fluid with normal m yometrial junction. Right ovary: 3.6 cm x 2.3 cm x 1.9 cm. Normal size ovary. Dominant follicle measures 1.9 x 1.4 x 2.0 cm. No mass identified. Left ovary: 2.5 cm x 1.8 cm x 2.0 cm. Normal size and vascularity, no cystic or solid masses. Small amount of simple free fluid in the cul-de-sac. US/US transvaginal [id number] IMPRESSION: 1. Small amount of free fluid in the cul-de-sac. 2. Mild fluid distention of the endometrium. Endometrium size is normal. No ma ss identified obstructing the endocervical canal.
[2022-02-02 09:16] LABS: Add Urine Microscopic? NO; Charge for UA Resulting for Rev
[2022-02-02 09:17] LABS: Bilirubin Urine Neg (Negative); Blood Urine Neg (Negative); Glucose Urine UA Norm (Normal); Ketones Urine Negative (Negative); Leukocyte Esterase Urine Negative (Negative); Nitrate Urine Negative (Negative); Protein Urine Neg (Negative); Urine Appearance Clear (CLEAR); Urine Color Yellow (Yellow); Urobilinogen Urine Norm (Negative); pH Urine 6 (5-7)
[2022-02-02 09:38] VITALS: BP 144/90; O2SAT 98
[2022-02-02 09:49] LABS: Basophils % 0.5 %; Eosinophils # 0.2 10^3/uL (0.0-0.8); Eosinophils % 2.1 %; Hematocrit 44.1 % (37.0-47.0); Hemoglobin 14.7 g/dL (11.5-15.3); Lymphocytes # 2.2 10^3/uL (0.8-4.8); Lymphocytes % 27.1 %; Mean Corpuscular HGB Conc 33.3 g/dL (30.0-36.0); Mean Corpuscular Hemoglobin 30.1 pg (28.0-34.0); Mean Corpuscular Volume 90.2 fl (81-99); Mean Platelet Volume 10.7 fL (7.4-10.4); Monocytes # 0.6 10^3/uL (0.2-0.9); Monocytes % 7.5 %; Neutrophils # 5.14 10^3/uL (1.8-7.7); Neutrophils % 62.6 %; Nucleated Red Blood Cells % 0 %; Platelet Count 238 10^3/cmm (130-400); Red Blood Count 4.89 10^6/uL (4.1-5.3); Red Cell Distribution Width 13.9 % (12.1-15.1); White Blood Count 8.2 10^3/uL (4.0-10.0)
--- NOTE | 2022-02-02 09:58 | W.ED.ABDPA2 ---
HPI - Abdominal Pain General: Chief Complaint: Abdominal Pain Stated Complaint: left abd pain Time Seen by Provider: 02/02/22 08:38 Source: patient Mode of arrival: ambulatory History of Present Illness: 41-year-old female presents emergency room with complaints of left lower quadrant abdominal pain began over the last couple days progressively worsening. No dysuria urgency or frequency no vaginal bleeding no vomiting. No fever sweats or chills no diarrhea. MD elicited complaint: other (Left pelvic pain) Onset (ago): day(s) Pain Consistency: constant Location: Pelvis (Left) Severity: moderate Quality: cramping Radiation: none Migration to: no migration Exacerbating factors: nothing Relieving factors: nothing Associated Symptoms: Reports GI cramping; Denies anorexia, belching, bloating, change in bowel habits, change in stool character, chills, coffee ground emesis, constipation, diarrhea, dyspepsia, dysuria, excessive flatus, fever(s), heartburn, hematochezia, hematuria, hematemesis, fecal incontinence, loose stools, melena, nausea, poor appetite, syncope and vomiting Related Data: Date of Last Menstrual Period: 01/19/22 Review of Systems Const: Denies: fever(s), chills, fatigue or malaise ENMT: Denies: throat pain, ear or mastoid pain, nasal discharge or nasal congestion Card: Denies: chest pain or syncope Resp: Denies: dyspnea, productive cough or non-productive cough GI: Reports: abdominal pain (Left side pelvic) and GI cramping; Denies: nausea, vomiting, hematemesis, coffee ground emesis, heartburn, diarrhea, constipation, bloating, belching, excessive flatus, fecal incontinence, change in bowel habits, change in stool character, hematochezia or melena : Denies: flank pain, difficulty voiding, dysuria, urinary frequency, urinary urgency, hematuria, genital lesions, vaginal bleeding or vaginal discharge Skin/Breast: Denies: rash or pruritus PFSH ED PFSH: Medical History Chronic bilateral low back pain without sciatica Chronic migraine without aura, intractable, with status migrainosus Hyperlipidemia Nicotine dependence, cigarettes, with unspecified nicotine-induced disorders Perirectal abscess Proctitis Seizure disorder Surgical History H/O hemorrhoidectomy History of pelvic surgery S/P cholecystectomy S/P tubal ligation Status post colonoscopy (~2017) Family History Mother Anesthesia complication Other COPD (chronic obstructive pulmonary disease) Cancer Diabetes Hypertension Lung disease Stroke Denies family history of Bleeding disorder Social History Smoking and tobacco status: current every day smoker cigarettes Packs smoked per day: 1 Alcohol intake: never Household members: significant other Marital status: Single Current occupational status: employed History of recent travel: No Female Reproductive History: Date of last menstrual period: 01/19/22 Physical Exam Const: COMMON NORMALS: no acute distress GENERAL APPEARANCE: cooperative and comfortable ORIENTATION/CONSCIOUSNESS: Yes awake, Yes oriented to person, Yes oriented to place and Yes oriented to time HENMT: COMMON NORMALS: normocephalic and atraumatic HEAD & SCALP: normocephalic and atraumatic Resp: COMMON NORMALS: normal respiratory effort, No retractions, No use of accessory muscles and clear to auscultation bilaterally AUSCULTATION: clear to auscultation bilaterally Cardio: COMMON NORMALS: regular rate, regular rhythm and No murmurs present (Cardio) RATE: regular rate RHYTHM: regular rhythm GI: COMMON NORMALS: No hepatosplenomegaly present AUSCULTATION: Yes normoactive bowel sounds PALPATION: Yes Tenderness to palpation present (GI) (Left lower quadrant left pelvic), No Guarding due to palpation present (GI) and Yes No hepatosplenomegaly present Extremity: COMMON NORMALS: normal to inspection, capillary refill normal, no clubbing, cyanosis or edema, no calf tenderness and no pedal edema Neuro: SENSORIUM/ORIENTATION: Yes oriented to person, Yes oriented to place and Yes oriented to time Skin: COMMON NORMALS: no rashes or lesions noted GENERAL SKIN EXAM: no rashes or lesions noted Course Vital Signs: Vital signs: Vital Signs Temperature 97.6 F 02/02/22 08:35 Pulse Rate 74 02/02/22 10:34 Respiratory Rate 16 02/02/22 10:28 Blood Pressure 124/93 02/02/22 10:34 Pulse Oximetry 98 02/02/22 10:34 Oxygen Delivery Me thod 02/02/22 09:38 MDM - Abdominal Pain Medical Decision Making Ultrasound shows small amount of fluid fluid in the cul-de-sac suspect ovarian cyst rupture given patient's degree of symptoms labs otherwise negative. We will discharge patient home anti-inflammatories. Medical Records I reviewed the patient's medical records. Lab Data I reviewed the patient's lab results. : 02/02/22 09:39 02/02/22 09:39 Labs/Radiology: Radiology Impressions Transvaginal US 02/02/22 08:44 IMPRESSION: 1. Small amount of free fluid in the cul-de-sac. 2. Mild fluid distention of the endometrium. Endometrium size is normal. No mass identified obstructing the endocervical canal. Laboratory Results WBC 8.2 10^3/uL (4.0-10.0) 02/02/22 09:39 RBC 4.89 10^6/uL (4.1-5.3) 02/02/22 09:39 Hgb 14.7 g/dL (11.5-15.3) 02/02/22 09:39 Hct 44.1 % (37.0-47.0) 02/02/22 09:39 MCV 90.2 fl (81-99) 02/02/22 09:39 MCH 30.1 pg (28.0-34.0) 02/02/22 09:39 MCHC 33.3 g/dL (30.0-36.0) 02/02/22 09:39 RDW 13.9 % (12.1-15.1) 02/02/22 09:39 Plt Count 238 10^3/cmm (130-400) 02/02/22 09:39 MPV 10.7 fL (7.4-10.4) H 02/02/22 09:39 Neut % (Auto) 62.6 % 02/02/22 09:39 Lymph % (Auto) 27.1 % 02/02/22 09:39 [place] % (Auto) 7.5 % 02/02/22 09:39 Eos % (Auto) 2.1 % 02/02/22 09:39 Baso % (Auto) 0.5 % 02/02/22 09:39 Neut # (Auto) 5.14 10^3/uL (1.8-7.7) 02/02/22 09:39 Lymph # (Auto) 2.2 10^3/uL (0.8-4.8) 02/02/22 09:39 [place] # (Auto) 0.6 10^3/uL (0.2-0.9) 02/02/22 09:39 Eos # (Auto) 0.2 10^3/uL (0.0-0.8) 02/02/22 09:39 Baso # (Auto) 0.0 10^3/uL (0.0-0.1) 02/02/22 09:39 Nucleated RBC % (auto) 0 % 02/02/22 09:39 Nucleated RBCs # 0.0 /100WBC 02/02/22 09:39 Sodium 138 mmol/L (136-145) 02/02/22 09:39 Potassium 3.5 mmol/L (3.5-5.1) 02/02/22 09:39 Chloride 105 mmol/L (98-107) 02/02/22 09:39 Carbon Dioxide 23 mmol/L (22-29) 02/02/22 09:39 Anion Gap 13.5 (5-19) 02/02/22 09:39 BUN 7 mg/dL (6-20) 02/02/22 09:39 Creatinine 0.8 mg/dL (0.5-0.9) 02/02/22 09:39 GFR Calculation 79.4 mL/min (90-130) L 02/02/22 09:39 Glucose 97 mg/dL (65-115) 02/02/22 09:39 Calculated Osmolality 284 mOsm/kg (285-295) L 02/02/22 09:39 Calcium 9.4 mg/dL (8.5-10.5) 02/02/22 09:39 Total Bilirubin 0.4 mg/dL (0.15-1.2) 02/02/22 09:39 AST 10 U/L (0-32) 02/02/22 09:39 ALT 7 U/L (0-33) 02/02/22 09:39 Alkaline Phosphatase 63 U/L (35-105) 02/02/22 09:39 Total Protein 6.9 g/dL (6.6-8.7) 02/02/22 09:39 Albumin 4.0 g/dL (3.5-5.2) 02/02/22 09:39 Globulin 2.9 g/dL (1.3-4.6) 02/02/22 09:39 HCG, Qual Negative (Negative) 02/02/22 09:39 Urine Color Yellow (Yellow) 02/02/22 09:09 Urine Appearance Clear (CLEAR) 02/02/22 09:09 Urine pH 6 (5-7) 02/02/22 09:09 Ur Specific [place] 1.020 (1.005-1.030) 02/02/22 09:09 Urine Protein Neg (Negative) 02/02/22 09:09 Urine Glucose (UA) Norm (Normal) 02/02/22 09:09 Urine Ketones Negative (Negative) 02/02/22 09:09 Urine Blood Neg (Negative) 02/02/22 09:09 Urine Nitrate Negative (Negative) 02/02/22 09:09 Urine Bilirubin Neg (Negative) 02/02/22 09:09 Urine Urobilinogen Norm mg/dL (Negative) 02/02/22 09:09 Ur Leukocyte Esterase Negative (Negative) 02/02/22 09:09 Discharge Plan Discharge Patient Disposition: Home Clinical Impression: Ovarian cyst Condition: Stable Prescriptions: New diclofenac sodium 75 mg tablet,delayed release (DR/EC) 75 mg PO Q12H PRN (Reason: pain) Qty: 20 0RF No Action albuterol sulfate [ProAir HFA] 90 mcg/actuation HFA aerosol inhaler 2 inh INHALATION Q4H PRN (Reason: shortness of breath or wheezing) Qty: 8.5 2RF Proctofoam HC 1-1 % foam 1 applic [place] DAILY PRN (Reason: itching) Qty: 10 2RF hydrocodone-acetaminophen 5-325 mg tablet 1 tab PO Q8H PRN (Reason: pain) Qty: 12 0RF Discharge Orders: Discharge ED (Routine); Ordered 02/02/22 Ordered By: Tom Jin Referrals: Anabela Dorantes DO [Primary Care Provider] - Discharge Diet: Usual diet Discharge Activity: Increase activity as tolerated Patient Instructions: Opioid Safety Activity Restrictions/Additional Instructions: Follow-up with your primary care doctor. If you have worsening symptoms return to the emergency room. Coding Level of Care Code ED Atomic Process Engineer for Tish Smallwood
[2022-02-02 10:04] LABS: Alanine Aminotransferase 7 U/L (0-33); Alkaline Phosphatase 63 U/L (35-105); Anion Gap 13.5 (5-19); Aspartate Amino Transferase 10 U/L (0-32); Blood Urea Nitrogen 7 mg/dL (6-20); Calcium 9.4 mg/dL (8.5-10.5); Carbon Dioxide 23 mmol/L (22-29); Chloride 105 mmol/L (98-107); Globulin 2.9 g/dL (1.3-4.6); Glomerular Filtration Rate 79.4 mL/min (90-130); Glucose 97 mg/dL (65-115); Osmolality Calculated 284 mOsm/kg (285-295); Potassium 3.5 mmol/L (3.5-5.1); Sodium 138 mmol/L (136-145); Total Bilirubin 0.4 mg/dL (0.15-1.2); Total Protein 6.9 g/dL (6.6-8.7)
[2022-02-02 10:28] VITALS: RESP 16; O2SAT 99
[2022-02-02] MEDS: ketorolac 60 mg/2 mL INJ IM (10:28)
[2022-02-02] MEDS: morphine 4 mg/mL SDV 1 mL IM (10:28)
[2022-02-02 10:31] LABS: HCG, Serum Qual Negative (Negative)
[2022-02-02 10:34] VITALS: BP 124/93; PULSE 74; O2SAT 98
== END 2022-02-02 10:37 | disposition home or self-care (01) ==
PROVIDERS: Emergency Provider Family Medicine; PCP Family Medicine
DX: N83.209 Unspecified ovarian cyst, unspecified side (principal); F17.210 Nicotine dependence, cigarettes, uncomplicated; E78.5 Hyperlipidemia, unspecified
CPT/HCPCS: 36415; 76830; 80053; 81003; 84703; 85025; 96372; 99284; J1885; J2270

== ENCOUNTER 2023-01-12 07:05 | Emergency (ER) | payer BC, SELFPAY ==
[2023-01-12 07:12] VITALS: BP 125/69; PULSE 95; RESP 18; TEMP 36.7; O2SAT 98; BMI 25.7
--- NOTE | 2023-01-12 07:29 | ED_ITS ---
HPI - Abdominal Pain General: Chief Complaint: Abdominal Pain Stated Complaint: abd pain Time Seen by Provider: 01/12/23 07:11 Source: patient Mode of arrival: ambulatory History of Present Illness: 42-year-old female presents emergency room complaining of rectal fullness and pain. She says she has had this intermittently in the past several times she has been seen by colorectal surgery and they have treated perirectal abscesses medically but never done any surgical reduction of disease. He has had a low- grade fever at home generalized pelvic fullness and discomfort at times seems to radiate into her legs. MD elicited complaint: abdominal pain Onset (ago): day(s) Pain Consistency: constant Location: Pelvis Severity: moderate Quality: aching and fullness Exacerbating factors: nothing Relieving factors: nothing Associated Symptoms: Denies anorexia, belching, bloating, chills, coffee ground emesis, constipation, GI cramping, diarrhea, dyspepsia, dysuria, fever(s), heartburn, hematuria, hematemesis, loose stools, nausea, poor appetite, syncope and vomiting Review of Systems Const: Denies: fever(s) or chills Card: Denies: syncope GI: Denies: nausea, vomiting, hematemesis, coffee ground emesis, heartburn, diarrhea, constipation, bloating, GI cramping or belching : Denies: dysuria, urinary frequency, urinary urgency or hematuria Musc: Denies: neck pain or back pain [facility] PFSH: Medical History (Updated 01/12/23 @ 13:33 by Tom Jin DO) Chronic bilateral low back pain without sciatica Chronic migraine without aura, intractable, with status migrainosus Hyperlipidemia Nicotine dependence, cigarettes, with unspecified nicotine-induced disorders Perirectal abscess Proctitis Seizure disorder Surgical History H/O hemorrhoidectomy History of pelvic surgery S/P cholecystectomy S/P tubal ligation Status post colonoscopy (~2018) Family History Mother Anesthesia complication Other COPD (chronic obstructive pulmonary disease) Cancer Diabetes Hypertension Lung disease Stroke Denies family history of Bleeding disorder Social History Smoking and tobacco status: current every day smoker cigarettes Packs smoked per day: 1 Alcohol intake: never Substance/Drug Use: never Household members: significant other Marital status: Single Current occupational status: employed Physical Exam Const: GENERAL APPEARANCE: cooperative and comfortable ORIENTATION/CONSCI OUSNESS: Yes awake, Yes oriented to person, Yes oriented to place and Yes oriented to time HENMT: COMMON NORMALS: normocephalic, atraumatic and hearing grossly normal bilaterally HEAD & SCALP: normocephalic and atraumatic Resp: COMMON NORMALS: normal respiratory effort, No retractions, No use of accessory muscles and clear to auscultation bilaterally AUSCULTATION: clear to auscultation bilaterally Cardio: COMMON NORMALS: regular rate, regular rhythm and No murmurs present (Cardio) RATE: regular rate RHYTHM: regular rhythm GI: COMMON NORMALS: Soft to palpation and No hepatosplenomegaly present AUSCULTATION: Yes normoactive bowel sounds PALPATION: Yes Soft to palpation, No Tenderness to palpation present (GI), No Guarding due to palpation present (GI) and Yes No hepatosplenomegaly present Extremity: COMMON NORMALS: normal to inspection, capillary refill normal, no clubbing, cyanosis or edema, no calf tenderness and no pedal edema Neuro: SENSORIUM/ORIENTATION: Yes oriented to person, Yes oriented to place and Yes oriented to time Skin: COMMON NORMALS: no rashes or lesions noted GENERAL SKIN EXAM: no rashes or lesions noted Course Vital Signs: Vital signs: Vital Signs Temperature 98.1 F 01/12/23 07:12 Pulse Rate 72 01/12/23 08:31 Respiratory Rate 16 01/12/23 08:31 Blood Pressure 141/83 01/12/23 08:31 Pulse Oximetry 98 01/12/23 08:31 Oxygen Delivery Me thod Room Air 01/12/23 08:31 MDM - Abdominal Pain Medical Decision Making Initial CT abscess was not well delineated as discussed with radiology it did look like there was something on the perirectal area after consultation with radiology repeated CT with contrast Sunday there is a 2 x 3 x 1 cm abscess. I discussed with general surgery here they did not feel they could manage the problem because the location and were concerned with a history of recommended colorectal surgery. Contacted [facility] colorectal surgeon asked that we transfer from ER to ER. Medical Records I reviewed the patient's medical records. Lab Data I reviewed the patient's lab results. 01/12/23 07:18 01/12/23 07:18 Labs/Radiology: Radiology Impressions Abdomen/Pelvis CT 01/12/23 07:30 IMPRESSION: 1. Punctate nonobstructing nephrolith in the left kidney upper pole. 2. Normal appearance of bowel. ADDENDUM: 01/12/23 0946 No distinct abnormalities are seen in the area of the rectum on this noncontrasted study. There is no evidence of fluid collection or significant stranding to suggest a large perirectal abscess. These findings were discussed via telephone conversation by Dr. Roberts with Dr. Jin at 9:40 a.m. on 01/12/2023. Pelvis CT 01/12/23 09:40 IMPRESSION: Perirectal abscess measuring roughly 2.8 x 0.9 x 1.8 cm, likely located in the anterior rectal wall, as above. ADDENDUM: 01/12/23 1025 THIS REPORT CONTAINS FINDINGS THAT MAY BE CRITICAL TO PATIENT CARE. The findings were verbally communicated via telephone conference with Dr. Tom Jin at 10:23 AM CDT on 01/12/2023. The findings were acknowledged and understood. Laboratory Results WBC 11.0 10^3/uL (4.0-10.0) H 01/12/23 07:18 RBC 5.05 10^6/uL (4.1-5.3) 01/12/23 07:18 Hgb 15.1 g/dL (11.5-15.3) 01/12/23 07:18 Hct 45.2 % (37.0-47.0) 01/12/23 07:18 MCV 89.5 fl (81-99) 01/12/23 07:18 MCH 29.9 pg (28.0-34.0) 01/12/23 07:18 MCHC 33.4 g/dL (30.0-36.0) 01/12/23 07:18 RDW 14.2 % (12.1-15.1) 01/12/23 07:18 Plt Count 286 10^3/cmm (130-400) 01/12/23 07:18 MPV 10.8 fL (7.4-10.4) H 01/12/23 07:18 Neut % (Auto) 64.3 % 01/12/23 07:18 Lymph % (Auto) 26.9 % 01/12/23 07:18 Dent % (Auto) 6.7 % 01/12/23 07:18 Eos % (Auto) 1.4 % 01/12/23 07:18 Baso % (Auto) 0.5 % 01/12/23 07:18 Neut # (Auto) 7.05 10^3/uL (1.8-7.7) 01/12/23 07:18 Lymph # (Auto) 3.0 10^3/uL (0.8-4.8) 01/12/23 07:18 Dent # (Auto) 0.7 10^3/uL (0.2-0.9) 01/12/23 07:18 Eos # (Auto) 0.2 10^3/uL (0.0-0.8) 01/12/23 07:18 Baso # (Auto) 0.1 10^3/uL (0.0-0.1) 01/12/23 07:18 Nucleated RBC % (auto) 0 % 01/12/23 07:18 Nucleated RBCs # 0.0 /100WBC 01/12/23 07:18 Sodium 140 mmol/L (136-145) 01/12/23 07:18 Potassium 3.7 mmol/L (3.5-5.1) 01/12/23 07:18 Chloride 102 mmol/L (98-107) 01/12/23 07:18 Carbon Dioxide 27 mmol/L (22-29) 01/12/23 07:18 Anion Gap 14.7 (5-19) 01/12/23 07:18 BUN 5 mg/dL (6-20) L 01/12/23 07:18 Creatinine 0.8 mg/dL (0.5-0.9) 01/12/23 07:18 GFR Calculation 79.0 mL/min (90-130) L 01/12/23 07:18 Glucose 106 mg/dL (65-115) 01/12/23 07:18 Calculated Osmolality 288 mOsm/kg (285-295) 01/12/23 07:18 Calcium 9.5 mg/dL (8.5-10.5) 01/12/23 07:18 Total Bilirubin 0.5 mg/dL (0.15-1.2) 01/12/23 07:18 AST 10 U/L (0-32) 01/12/23 07:18 ALT 6 U/L (0-33) 01/12/23 07:18 Alkaline Phosphatase 76 U/L (35-105) 01/12/23 07:18 Total Protein 7.6 g/dL (6.6-8.7) 01/12/23 07:18 Albumin 4.3 g/dL (3.5-5.2) 01/12/23 07:18 Globulin 3.3 g/dL (1.3-4.6) 01/12/23 07:18 Lipase 18 U/L (13-60) 01/12/23 07:18 Urine Color Yellow (Yellow) 01/12/23 07:20 Urine Appearance Cloudy (CLEAR) A 01/12/23 07:20 Urine pH 6 (5-7) 01/12/23 07:20 Ur Specific [place] 1.015 (1.005-1.030) 01/12/23 07:20 Urine Protein Trace (Negative) 01/12/23 07:20 Urine Glucose (UA) Norm (Normal) 01/12/23 07:20 Urine Ketones 1+ (Negative) H 01/12/23 07:20 Urine Blood 3+ (Negative) H 01/12/23 07:20 Urine Nitrate Negative (Negative) 01/12/23 07:20 Urine Bilirubin 1+ (Negative) H 01/12/23 07:20 Urine Urobilinogen 4 mg/dL (Negative) H 01/12/23 07:20 Ur Leukocyte Esterase 1+ (Negative) H 01/12/23 07:20 Urine RBC 0-4 /hpf (0-2) H 01/12/23 07:20 Urine WBC 5-10 /hpf (0-5) H 01/12/23 07:20 Ur Squamous Epith Cells 10-15 /hpf (0-5) H 01/12/23 07:20 Amorphous Sediment Not Reportable 01/12/23 07:20 Urine Bacteria 1+ /hpf (NONE) H 01/12/23 07:20 Urine Mucus 1+ /hpf 01/12/23 07:20 Discharge Plan Discharge Patient Disposition: Transfer to ED Clinical Impression: Abscess of rectum Condition: Stable Prescriptions: No Action No Known Home Medications Referrals: Anabela Dorantes DO [Primary Care Provider] - Coding Level of Care Code ED [employer] for Tish Smallwood
--- NOTE | 2023-01-12 07:30 | CTR_ITS ---
PROCEDURE INFORMATION: Exam: CT Abdomen And Pelvis Without Contrast Exam date and time: 01/12/2023 7:37 AM Age: 42 years old Clinical indication: Prior surgery; Surgery date: 6+ months; Surgery type: Gb hysto; Patient HX: Lower abdominal pain thats put pressure on my legs. patient reports pain since Sunday that has been constant. Patient states she has not been dx with crohns but thinks she has that. Patient rates her discomfort 9/10. Patient denies n/v/d. TECHNIQUE: Imaging protocol: Computed tomography of the abdomen and pelvis without contrast. Radiation optimization: All CT scans at this facility use at least one of these dose optimization techniques: automated exposure control; mA and/or kV adjustment per patient size (includes targeted exams where dose is matched to clinical indication); or iterative reconstruction. REPORTING DATA: Count of CT and Cardiac NM exams in prior 12 months: This patient has received 0 known CTs and 0 known cardiac nuclear medicine studies in the 12 months prior to the current study. COMPARISON: CT abdomen pelvis w con* [id number] 10/23/2020 8:29 PM RADIATION DOSE METRICS: Total DLP (mGy-cm): 398.38 FINDINGS: Liver: Normal. No mass. Gallbladder and bile ducts: Status post cholecystectomy. Pancreas: Normal. No ductal dilation. Spleen: Normal. No splenomegaly. Adrenal glands: Normal. No mass. Kidneys and ureters: Punctate nonobstructing nephrolith in the left kidney upper pole. Stomach and bowel: Normal appearance of bowel. Appendix: Appendix is normal. Intraperitoneal space: Unremarkable. No free air. No significant fluid collection. Vasculature: Unremarkable. No abdominal aortic aneurysm. Lymph nodes: Unremarkable. No enlarged lymph nodes. Urinary bladder: Unremarkable as visualized. Reproductive: Unremarkable as visualized. Bones/joints: Unremarkable. No acute fracture. Soft tissues: Unremarkable. CT/CT abdomen pelvis wo con [id number] IMPRESSION: 1. Punctate nonobstructing nephrolith in the left kidney upper pole. 2. Normal appearance of bowel.
[2023-01-12] MEDS: ondansetron 2 mg/ML SDV 2 mL 4 MG IVP (07:31)
[2023-01-12] MEDS: sodium chloride 0.9% 1,000 ML 999 ML IV ×2 (07:32→09:36)
[2023-01-12 07:33] LABS: Basophils # 0.1 10^3/uL (0.0-0.1); Basophils % 0.5 %; Eosinophils # 0.2 10^3/uL (0.0-0.8); Eosinophils % 1.4 %; Hematocrit 45.2 % (37.0-47.0); Hemoglobin 15.1 g/dL (11.5-15.3); Lymphocytes % 26.9 %; Mean Corpuscular HGB Conc 33.4 g/dL (30.0-36.0); Mean Corpuscular Hemoglobin 29.9 pg (28.0-34.0); Mean Corpuscular Volume 89.5 fl (81-99); Mean Platelet Volume 10.8 fL (7.4-10.4); Monocytes # 0.7 10^3/uL (0.2-0.9); Monocytes % 6.7 %; Neutrophils # 7.05 10^3/uL (1.8-7.7); Neutrophils % 64.3 %; Nucleated Red Blood Cells % 0 %; Platelet Count 286 10^3/cmm (130-400); Red Blood Count 5.05 10^6/uL (4.1-5.3); Red Cell Distribution Width 14.2 % (12.1-15.1)
[2023-01-12 07:43] LABS: Alanine Aminotransferase 6 U/L (0-33); Albumin Level 4.3 g/dL (3.5-5.2); Alkaline Phosphatase 76 U/L (35-105); Anion Gap 14.7 (5-19); Aspartate Amino Transferase 10 U/L (0-32); Blood Urea Nitrogen 5 mg/dL (6-20); Calcium 9.5 mg/dL (8.5-10.5); Carbon Dioxide 27 mmol/L (22-29); Chloride 102 mmol/L (98-107); Globulin 3.3 g/dL (1.3-4.6); Glucose 106 mg/dL (65-115); Lipase 18 U/L (13-60); Osmolality Calculated 288 mOsm/kg (285-295); Potassium 3.7 mmol/L (3.5-5.1); Sodium 140 mmol/L (136-145); Total Bilirubin 0.5 mg/dL (0.15-1.2); Total Protein 7.6 g/dL (6.6-8.7)
[2023-01-12 07:48] LABS: Add Urine Microscopic? YES; Bilirubin Urine 1+ (Negative); Blood Urine 3+ (Negative); Glucose Urine UA Norm (Normal); Ketones Urine 1+ (Negative); Leukocyte Esterase Urine 1+ (Negative); Nitrate Urine Negative (Negative); Protein Urine Trace (Negative); Specific Gravity, Urine 1.015 (1.005-1.030); Urine Appearance Cloudy (CLEAR); Urine Color Yellow (Yellow); Urobilinogen Urine 4 mg/dL (Negative); pH Urine 6 (5-7)
[2023-01-12 07:49] LABS: RBC Urine 0-4 /hpf (0-2)
[2023-01-12 07:50] LABS: Add Urine Culture? No; Bacteria Urine 1+ /hpf; Mucus Urine 1+ /hpf
[2023-01-12] MEDS: morphine 4 mg/mL SDV 1 mL IVP (07:53)
--- NOTE | 2023-01-12 08:19 | PC.PHAR ---
pt states takes no rx or otc medications
[2023-01-12 08:31] VITALS: BP 141/83; PULSE 72; RESP 16; O2SAT 98
--- NOTE | 2023-01-12 09:40 | CTR_ITS ---
PROCEDURE INFORMATION: Exam: CT Pelvis With Contrast Exam date and time: 01/12/2023 9:52 AM Age: 42 years old Clinical indication: Pain; Other: Rectal; Prior surgery; Surgery date: 6+ months; Surgery type: Tubal, hemorrhoidectomy; Additional info: Rectal pain TECHNIQUE: Imaging protocol: Computed tomography of the pelvis with contrast. Radiation optimization: All CT scans at this facility use at least one of these dose optimization techniques: automated exposure control; mA and/or kV adjustment per patient size (includes targeted exams where dose is matched to clinical indication); or iterative reconstruction. Contrast material: OMNI 350; Contrast volume: 100 ml; Contrast route: INTRAVENOUS (IV); REPORTING DATA: Count of CT and Cardiac NM exams in prior 12 months: This patient has received 0 known CTs and 0 known cardiac nuclear medicine studies in the 12 months prior to the current study. COMPARISON: CT abdomen pelvis wo con [id number] 01/12/2023 7:37 AM RADIATION DOSE METRICS: Total DLP (mGy-cm): 284.83 FINDINGS: Stomach and bowel: Small perirectal fluid collection noted measuring roughly 2.8 x 0.9 x 1.8 cm (axial series 4, image 41; sagittal series 8, image 30; coronal series 7, image 29), with peripheral postcontrast enhancement. This is favored to represent a perirectal abscess likely within the anterior rectal wall. Appendix: No evidence of appendicitis. Intraperitoneal space: Unremarkable. No free air. No significant fluid collection. Lymph nodes: Unremarkable. No enlarged lymph nodes. Urinary bladder: Normal. No mass. Reproductive: Uterus demonstrates a mildly thickened enhancing myometrium with small amount of endometrial fluid. These are expected findings during patient's menstrual period. Bones/joints: Unremarkable. No acute fracture. No dislocation. Soft tissues: Unremarkable. CT/CT pelvis w con* [id number] IMPRESSION: Perirectal abscess measuring roughly 2.8 x 0.9 x 1.8 cm, likely located in the anterior rectal wall, as above.
[2023-01-12] MEDS: iohexol 350 mg/mL 500 mL Btl (per mL) IV (09:58)
[2023-01-12] MEDS: ciprofloxacin 400 MG/200 ML PREMIX 200 MG IV (11:15)
--- NOTE | 2023-01-12 11:48 | PC.NURSE ---
Patient has been accepted to [facility] ER by Dr. Barton. I called reported to PAMELA Hernandez in the ER at [facility]. will be setting up transport shortly.
[2023-01-12] MEDS: metroNIDAZOLE IV 500 MG/100 ML PREMIX 100 MG IV (12:25)
== END 2023-01-12 12:35 ==
PROVIDERS: Emergency Provider Family Medicine; PCP Family Medicine
DX: K61.1 Rectal abscess (principal)
CPT/HCPCS: 72193; 74176; 80053; 81001; 83690; 85025; 96361; 96365; 96375; 99285; J0744; J2270; J2405; J3490; J7030; Q9967

== ENCOUNTER 2023-01-14 14:21 | Emergency (ER) | payer BC, SELFPAY ==
[2023-01-14 14:28] VITALS: BP 128/77; PULSE 96; RESP 15; TEMP 36.8; O2SAT 97
[2023-01-14 15:44] VITALS: RESP 20; O2SAT 98
[2023-01-14] MEDS: morphine 4 mg/mL SDV 1 mL IM (15:44)
--- NOTE | 2023-01-14 16:47 | W.ED.WOUNDLC ---
HPI - Wound/Laceration General: Chief Complaint: Wound/Laceration Stated Complaint: previous surgery, groin area, packing Time Seen by Provider: 01/14/23 14:48 History of Present Illness: Patient is a 42-year-old female that presents to the emergency department in need of packing removal. Patient reports she was seen on Sunday and transported to [facility] for perirectal abscess. She was treated by Dr. Khadijah Segura at [facility]. Her wound was packed and she was told to remove packing today and then regular follow-up on Sunday. Patient attempted but was unsuccessful at removing the packing at home. She denies any other complaints and her pain is fairly controlled. Associated symptoms: Denies chills, fever(s), nausea or vomiting Review of Systems General: Reports: 10 or more systems reviewed and unremarkable except in HPI and below Const: Denies: fever(s), chills, change in appetite, change in weight, fatigue or malaise Resp: Denies: dyspnea, productive cough, non-productive cough, wheezing, stridor or chest congestion GI: Reports: rectal pain and rectal swelling; Denies: abdominal pain, nausea, vomiting, dysphagia, diarrhea, constipation, bloating, GI cramping or hematochezia Musc: Denies: neck pain, back pain, extremity pain, joint pain, joint swelling, joint redness, joint warmth or muscle weakness Skin/Breast: Denies: rash, pruritus, erythema, photosensitivity or new lesions [facility] ED PFSH: Medical History (Updated 01/14/23 @ 16:48 by EB Henao) Chronic bilateral low back pain without sciatica Chronic migraine without aura, intractable, with status migrainosus Hyperlipidemia Nicotine dependence, cigarettes, with unspecified nicotine-induced disorders Perirectal abscess Proctitis Seizure disorder Surgical History H/O hemorrhoidectomy History of pelvic surgery S/P cholecystectomy S/P tubal ligation Status post colonoscopy (~2018) Family History Mother Anesthesia complication Other COPD (chronic obstructive pulmonary disease) Cancer Diabetes Hypertension Lung disease Stroke Denies family history of Bleeding disorder Social History (Reviewed 01/12/23 @ 13:28 by ROBBIE Price Smoking and tobacco status: current every day smoker cigarettes Packs smoked per day: 1 Alcohol intake: never Substance/Drug Use: never Household members: significant other Marital status: Single Current occupational status: employed Physical Exam Const: COMMON NORMALS: no acute distress GENERAL APPEARANCE: cooperative ORIENTATION/CONSCIOUSNESS: Yes awake Chest: COMMONS NORMALS: normal inspection of the chest Breast/axilla inspection: Yes no chest deformity, asymmetry, normal contours, no nodules, masses, tenderness Resp: COMMON NORMALS: normal respiratory effort, No retractions, No use of accessory muscles and clear to auscultation bilaterally EFFORT & INSPECTION: Yes able to speak in complete sentences and Yes symmetric chest movement AUSCULTATION: clear to auscultation bilaterally Cardio: COMMON NORMALS: regular rate, regular rhythm and Peripheral pulses 2+ throughout RATE: regular rate RHYTHM: regular rhythm PERIPHERAL PULSES: Peripheral pulses 2+ throughout GI: COMMON NORMALS: Normal to inspection, nondistended, normoactive bowel sounds present, Soft to palpation, non-tender and No hepatosplenomegaly present INSPECTION: Yes normal to inspection AUSCULTATION: Yes normoactive bowel sounds PALPATION: Yes Soft to palpation and Yes No hepatosplenomegaly present RECTAL EXAM: deferred : EXTERNAL FEMALE EXAM: Yes externally tender, Yes external swelling and Yes laceration GENITAL IMAGES (FEMALE): 1. Abscess that has been surgically drained and packed. Patient is not draining at this time Extremity: COMMON NORMALS: normal to inspection GENERAL: Yes normal exam except as noted Skin: COMMON NORMALS: no rashes or lesions noted, no wounds and turgor normal GENERAL SKIN EXAM: no rashes or lesions noted and turgor normal Course Vital Signs: Vital signs: Vital Signs Temperature 98.2 F 01/14/23 14:28 Pulse Rate 96 01/14/23 14:28 Respiratory Rate 20 H 01/14/23 15:44 Blood Pressure 128/77 01/14/23 14:28 Pulse Oximetry 98 01/14/23 15:44 Oxygen Delivery Me thod Room Air 01/14/23 14:28 MDM - Wound/Laceration Medical Decision Making Was evaluated in the emergency department need of packing removal. Patient was a bit anxious and was unable to pull packing out. I treated her pain here in the emergency department with 4 mg IM morphine. I remove the packing without difficulty. Purulent drainage present Patient has follow-up with Dr. Segura on Sunday. I have advised her to follow-up and to return here as needed for new, concerning, worsening symptoms Discharge Plan Discharge Patient Disposition: Home Clinical Impression: Abscess of rectum Condition: Stable Prescriptions: No Action No Known Home Medications Discharge Orders: Discharge ED (Routine); Ordered 01/14/23 Ordered By: Yudi Mancia Referrals: Anabela Dorantes DO [Primary Care Provider] - Discharge Diet: Advance as tolerated Discharge Activity: Resume usual activity Patient Instructions: Pain Management Activity Restrictions/Additional Instructions: Follow-up with Dr. Segura as planned. Return to the emergency department for new concerning or worsening symptoms Coding Level of Care Code ED Sl[employer] for Tish Smallwood
== END 2023-01-14 16:56 | disposition home or self-care (01) ==
PROVIDERS: Emergency Provider Nurse Practitioner; PCP Family Medicine
DX: K61.1 Rectal abscess (principal)
CPT/HCPCS: 96372; 99284; J2270

== ENCOUNTER → 2023-08-13 10:09 | Outpatient (BNVA) | payer BC, SELFPAY | PROVIDERS: PCP Family Medicine; Visit Provider Registered Nurse Neonatal Intensive Care | DX: Z20.2 Contact with and (suspected) exposure to infections with a predominantly sexual mode of transmission (principal) | CPT/HCPCS: 87491; 87591 ==

== ENCOUNTER 2024-06-17 08:22 | Emergency (ER) | payer BC, SELFPAY ==
[2024-06-17 08:44] VITALS: PULSE 107; RESP 16; TEMP 36.6; O2SAT 97; BMI 27.4
[2024-06-17 08:46] VITALS: BP 127/85
--- NOTE | 2024-06-17 08:56 | ED_ITS ---
HPI - Back Pain/Injury 2 General: Chief Complaint: Back Pain/Injury Stated Complaint: back right side pain Time Seen by Provider: 06/17/24 08:56 Source: patient Mode of arrival: ambulatory Limitations: no limitations History of Present Illness: Patient is a nice 43-year-old female presents to ED today with a complaint of right sided back pain that began approximately 3 to 4 days ago. Patient states she was coughing and immediately felt something pull/pop on the right side of her back and has had discomfort since. She does not feel like pain radiates. She does have a history of kidney stones and states this does not feel like this. Pain is worse with movement, coughing, sneezing. She denies any abdominal or chest pain. No shortness of breath or difficulty breathing. No hemoptysis. MD elicited complaint: back pain Onset (ago): day(s) Timing: constant Severity: moderate Pain scale (0-10): 5 Location: right upper back Radiation: none Exacerbating factors: movement and coughing/sneezing Relieving factors: none Context: other (while coughing) Associated symptoms: Deny abdominal pain, chills, dysuria, fatigue, fever(s), nausea, syncope, urinary urgency or vomiting Treatments prior to arrival: heat therapy Work related injury: No Related Data Home Medications Medication Instructions Recorded Confirmed acetaminophen 500 mg tablet 1,000 mg PO QID PRN Fever Or Pain 06/17/24 06/17/24 (Tylenol Extra Strength) Previous Rx's Medication Instructions Recorded diclofenac sodium 50 mg 50 mg PO Q12H PRN pain #20 tabs 06/17/24 tablet,delayed release methocarbamol 500 mg tablet 1,000 mg (2 x 500 mg) PO Q8H #30 06/17/24 tabs methylprednisolone 4 mg tablets in See Rx Instructions PO .COMPLEX 06/17/24 a dose pack (Medrol (Adán)) #21 ea Allergies Allergy/AdvReac Type Severity Reaction Status Date / Time Penicillins Allergy ALGY-Hives Verified 08/13/23 09:57 Review of Systems 2 Const: Denies: fever(s), chills, body aches, fatigue or malaise Card: Denies: chest pain, palpitations, irregular heart rhythm, edema, swelling of feet/ankles, lightheadedness, syncope, pre-syncope, dyspnea on exertion, orthopnea, leg pain with exertion or acrocyanosis Resp: Denies: dyspnea, productive cough, non-productive cough, wheezing, hemoptysis or chest congestion GI: Denies: abdominal pain, nausea, vomiting or diarrhea : Denies: difficulty voiding, dysuria, urinary frequency, urinary urgency or urinary hesitancy Musc: Reports: back pain; Denies: neck pain, extremity pain, extremity swelling, joint pain or joint swelling Skin/Breast: Denies: rash Neuro: Denies: headache(s), numbness in extremities, weakness in extremities, sensory changes or dizziness PFSH ED 2 PFSH: Medical History (Updated 06/17/24 @ 09:57 by ELINOR Catalan) Proctitis Perirectal abscess Nicotine dependence, cigarettes, with unspecified nicotine-induced disorders Hyperlipidemia Chronic bilateral low back pain without sciatica Chronic migraine without aura, intractable, with status migrainosus Seizure disorder Surgical History Status post colonoscopy (~2017) History of pelvic surgery S/P tubal ligation S/P cholecystectomy H/O hemorrhoidectomy Family History Mother Anesthesia complication Other COPD (chronic obstructive pulmonary disease) Cancer Diabetes Hypertension Lung disease Stroke Denies family history of Bleeding disorder Social History Smoking and tobacco/nicotine status: current every day tobacco/nicotine user cigarettes Packs smoked per day: 1 Alcohol intake: never Substance/Drug Use: never Household members: significant other Marital status: Single Current occupational status: employed Physical Exam 2 Const: COMMON NORMALS: no acute distress, average body habitus, patient oriented x3, no limitations, healthy appearing, alert and well nourished G ENERAL APPEARANCE: cooperative ORIENTATION/CONSCIOUSNESS: Yes awake, Yes oriented to person, Yes oriented to place and Yes oriented to time Eye: COMMON NORMALS: no scleral icterus Neck/C-Spine: COMMON NORMALS: full ROM, no lymphadenopathy and no meningeal signs GENERAL: Yes normal visual inspection CERVICAL SPINE: Yes cervical ROM normal Chest: COMMONS NORMALS: normal inspection of the chest and normal palpation of entire chest wall Resp: COMMON NORMALS: normal respiratory effort and clear to auscultation bilaterally AUSCULTATION: clear to auscultation bilaterally Cardio: COMMON NORMALS: regular rate and regular rhythm RATE: regular rate RHYTHM: regular rhythm GI: COMMON NORMALS: Normal to inspection, nondistended, normoactive bowel sounds present, Soft to palpation, non-tender, No hepatosplenomegaly present and no masses PALPATION: Yes Soft to palpation and Yes No hepatosplenomegaly present Back/Pelvis: COMMON NORMALS: thoracic and lumbar spine normal to inspection, no thoracic nor lumbar tenderness and straight leg raise negative bilaterally THORACIC SPINE/UPPER BACK: Yes normal to inspection, No thoracic spinal tenderness and Yes paraspinal muscle tenderness LUMBAR SPINE/LOWER BACK: Yes normal to inspection, No lumbar spinal tenderness and No paraspinal muscle tenderness PELVIS: Yes buttocks normal and No sciatic notch tenderness S ACROILIAC JOINTS: Yes SI joints normal SACRUM: no tenderness COCCYX: no tenderness BACK IMAGE (FEMALE): 1. TTP Extremity: COMMON NORMALS: normal to inspection and capillary refill normal GENERAL: Yes normal exam except as noted Neuro: COMMON NORMALS: patient oriented x3, moves all extremities, no focal motor deficits, no sensory deficits noted and gait normal S ENSORIUM/ORIENTATION: Yes alert, Yes oriented to person, Yes oriented to place and Yes oriented to time MENINGEAL SIGNS: Yes no meningeal signs Skin: COMMON NORMALS: no rashes or lesions noted GENERAL SKIN EXAM: no rashes or lesions noted Course 2 Vital Signs: Vital signs: Vital Signs Temperature 97.9 F 06/17/24 08:44 Pulse Rate 107 H 06/17/24 08:44 Respiratory Rate 16 06/17/24 08:44 Blood Pressure 127/85 06/17/24 08:46 Pulse Oximetry 97 06/17/24 08:44 Oxygen Delivery Me thod Room Air 06/17/24 08:44 MDM - Back Pain/Injury Medical Decision Making Patient here with right sided back pain after feeling a pull/pop in her back after coughing a few days ago. Patient was given IM steroids, muscle relaxers, anti-inflammatories. She feels quite a deal better on re-examination. Patient will be treated with these medications at home over the next week. Recommend follow-up with primary care if symptoms do not seem to be improving. Return to ED precautions discussed. No radiology studies performed this visit Discharge Plan Discharge Patient Disposition: Home Clinical Impression: Muscle strain of right upper back Qualifiers: Encounter type: initial encounter Qualified Code(s): S29.012A - Strain of muscle and tendon of back wall of thorax, initial encounter Condition: Stable Prescriptions: New methocarbamol 500 mg tablet 1,000 mg PO Q8H Qty: 30 0RF diclofenac sodium 50 mg tablet,delayed release (DR/EC) 50 mg PO Q12H PRN (Reason: pain) Qty: 20 0RF methylprednisolone [Medrol (Adán)] 4 mg tablets,dose pack See Rx Instructions .ROUTE .COMPLEX Qty: 21 0RF Rx Instructions: orally per package directions No Action acetaminophen [Tylenol Extra Strength] 500 mg Tablet 1,000 mg PO QID PRN (Reason: Fever Or Pain) Discharge Orders: Discharge ED (Routine); Ordered 06/17/24 Ordered By: Korina Raymond Referrals: Anabela Dorantes DO [Primary Care Provider] - Patient Instructions: Thoracic Back Strain (ED) Activity Restrictions/Additional Instructions: As we discussed, we will treat with anti-inflammatories, steroids, muscle relaxers. You can continue the heat. You may use Tylenol as well to help with further discomfort. Do not take [id number] NSAIDs such as Ibuprofen/Aleve/Motrin/Naproxen along with your prescription Diclofenac as this is an anti-inflammatory. You may follow-up with primary care as scheduled if symptoms are not improving. I hope you begin to feel better soon. Coding Level of Care Code ED [employer] for Tish Smallwood
[2024-06-17] MEDS: orphenadrine 30 mg/mL Inj 2 mL 60 MG IM (09:15)
[2024-06-17] MEDS: ketorolac 60 mg/2 mL INJ IM (09:16)
[2024-06-17] MEDS: dexamethasone 10 mg/mL INJ 8 MG IM (09:16)
== END 2024-06-17 10:11 | disposition home or self-care (01) ==
PROVIDERS: Emergency Provider Physician Assistant; PCP Family Medicine
DX: S29.012A Strain of muscle and tendon of back wall of thorax, initial encounter (principal); F17.210 Nicotine dependence, cigarettes, uncomplicated; E78.5 Hyperlipidemia, unspecified; X58.XXXA Exposure to other specified factors, initial encounter
CPT/HCPCS: 96372; 99284; J1100; J1885; J2360

== ENCOUNTER → 2024-07-09 11:11 | Outpatient (BNVA) | payer BC, SELFPAY | PROVIDERS: PCP Family Medicine; Visit Provider Family Medicine | DX: Z00.00 Encounter for general adult medical examination without abnormal findings (principal) | CPT/HCPCS: 80053; 80061; 82306; 82607; 83036; 84443; 85025 ==

== ENCOUNTER 2024-08-04 16:02 | Outpatient (CLI) | payer BC, SELFPAY ==
--- NOTE | 2024-08-04 16:10 | MM_ITS ---
WS: [id number] BILATERAL 3D TOMOSYNTHESIS DIGITAL SCREENING MAMMOGRAPHY WITH CAD CLINICAL INFORMATION: SCREEN HISTORY: Screening mammogram. No current complaints. COMPARISON: 2019 TECHNIQUE: Bilateral CC and MLO views. FINDINGS: Scattered fibroglandular densities bilaterally. No suspicious focal mass, asymmetry, calcifications, or architectural distortion. No evidence of malignancy. MM/MM scr BI tomosynthesis [id number] IMPRESSION: DENSITY: There are scattered areas of fibroglandular density. BI-RADS: 1 - Negative. FOLLOW UP: 1 Year Follow-up Recommend return to annual screening mammography.
== END 2024-08-04 16:03 | disposition home or self-care (01) ==
PROVIDERS: Visit Provider Family Medicine
DX: Z12.31 Encounter for screening mammogram for malignant neoplasm of breast (principal); R92.323 Mammographic fibroglandular density, bilateral breasts
CPT/HCPCS: 77063; 77067

== ENCOUNTER → 2024-10-13 16:06 | Outpatient (BNVA) | payer BC, SELFPAY | PROVIDERS: PCP Family Medicine; Visit Provider Family Medicine | DX: E78.2 Mixed hyperlipidemia (principal); E55.9 Vitamin D deficiency, unspecified; N93.9 Abnormal uterine and vaginal bleeding, unspecified | CPT/HCPCS: 80061; 82306; 85025 ==

== ENCOUNTER → 2025-04-07 13:54 | Outpatient (BNVA) | payer BC, SELFPAY | PROVIDERS: PCP Family Medicine; Visit Provider Family Medicine | DX: E78.2 Mixed hyperlipidemia (principal); E55.9 Vitamin D deficiency, unspecified; R53.83 Other fatigue | CPT/HCPCS: 80061; 82306 ==

== ENCOUNTER → 2025-04-13 11:43 | Outpatient (BNVA) | payer BC, SELFPAY | PROVIDERS: PCP Family Medicine; Visit Provider Family Medicine | DX: E78.2 Mixed hyperlipidemia (principal); R53.83 Other fatigue; E55.9 Vitamin D deficiency, unspecified | CPT/HCPCS: 80061; 82306; 85025 ==

== ENCOUNTER 2025-04-17 16:44 | Outpatient (CLI) | payer BC, SELFPAY ==
--- NOTE | 2025-04-17 17:00 | USR_ITS ---
PROCEDURE INFORMATION: Exam: US Pelvis, Complete, Non-Obstetric Exam date and time: 04/17/2025 5:13 PM Age: 44 years old Clinical indication: Abnormal uterine bleeding TECHNIQUE: Imaging protocol: Transabdominal pelvic nonobstetric ultrasound. Complete exam. Real time ultrasound with image documentation. COMPARISON: CT pelvis w con* [id number] 01/12/2023 9:52 AM FINDINGS: Uterus: Uterus is normal. Endometrial stripe is normal and measures 5 mm. Nabothian cysts are present in the cervix. Right ovary/adnexa: Ovary is normal. No mass. Normal blood flow. Left ovary/adnexa: Ovary is normal. No mass. Normal blood flow. Intraperitoneal space: No intraperitoneal fluid. Urinary bladder: Normal. US/US pelv w/transvag [id number] IMPRESSION: No acute findings.
== END 2025-04-17 16:45 | disposition home or self-care (01) ==
LOC: RAD 16:45
PROVIDERS: PCP Family Medicine; Visit Provider Family Medicine
DX: N93.9 Abnormal uterine and vaginal bleeding, unspecified (principal)
CPT/HCPCS: 76830; 76856

== ENCOUNTER → 2025-04-27 11:03 | Outpatient (BNVA) | payer BC, SELFPAY | PROVIDERS: PCP Family Medicine; Visit Provider Family Medicine | DX: E55.9 Vitamin D deficiency, unspecified (principal); E78.2 Mixed hyperlipidemia; R53.83 Other fatigue | CPT/HCPCS: 80061; 82306; 85025 ==

== ENCOUNTER → 2025-05-06 14:58 | Outpatient (BNVA) | payer BC, SELFPAY | PROVIDERS: PCP Family Medicine; Visit Provider Obstetrics & Gynecology | DX: Z01.419 Encounter for gynecological examination (general) (routine) without abnormal findings (principal); N93.9 Abnormal uterine and vaginal bleeding, unspecified | CPT/HCPCS: 82670; 83001; 83002; 84146; 84443; 87624 ==